=== PATIENT | female | born 1940 | race Caucasian/White ===

== ENCOUNTER 2017-10-20 10:51 | Outpatient (CLI) | payer MEDICARE ==
--- NOTE | 2017-10-20 14:36 | PET ---
PET CT: HISTORY: 77-year-old female with colorectal cancer. Exam requested for restaging. Patient had a colostomy in O miober-July of 2016 and last chemotherapy in February 2017. TECHNIQUE: PET scanning with CT attenuation correction was performed from the base of the brain through the prox imal thighs following the intravenous administration of 10.3 mCi F18-FDG in the right wrist. Imaging was performed after an uptake interval of 53 minutes. COMPARISON: PET CT dated 09/09/16. CORRELATION: CT chest, abdomen, and pelvis dated 10/01/17. FINDINGS: There has been interval development of multiple new liver lesions with a maximum SUV of 7.5 in the le jeanna located in the posterior aspect of the dome of the right lobe of the liver. The SUV in the infer ior tip of the right lobe of the liver (posterior) measures 7.1. No kiki hypermetabolism is seen in the neck, chest, axilla, abdomen, pelvis, or inguinal regions. No hypermetabolic pulmonary nodules, adrenal, or skeletal lesions are seen. There is physiologic activity in the GI and tracts. The CT scan used for attenuation correction demonstrates no evidence of pleural effusions or ascites. A left lower quadrant colostomy is present. IMPRESSION: Multiple hepatic metastases, new since 09/09/16. POS: [facility]
== END 2017-10-20 10:52 | disposition home or self-care (01) ==
LOC: PET 10:51
PROVIDERS: ATTEND Internal Medicine Medical Oncology
DX: C19 Malignant neoplasm of rectosigmoid junction (principal); C22.7 Other specified carcinomas of liver; Z88.2 Allergy status to sulfonamides
CPT/HCPCS: 78815; A9552

== ENCOUNTER 2018-08-02 09:50 | Outpatient (CLI) | payer MEDICARE ==
[~2018-08-02 09:50] MED LIST: Iopamidol 370 76% 100 ML VIAL ONE
--- NOTE | 2018-08-02 13:22 | CT ---
CT ABDOMEN WITH CONTRAST CT PELVIS WITH CONTRAST: HISTORY: Malignant neoplasm of the sigmoid colon. Partial resection of the liver. The stomach has been remov ed. Previous gallbladder surgery and appendectomy. COMPARISON: 05/20/2018, 12/24/2017. FINDINGS: ABDOMEN CT: There are dependent atelectatic changes I the lung bases. There is a 1.1 x 1.1 cm nodule in the left upper lobe. There is a 0.6 x 0.5 nodule in the right middle lobe. Both nodules were identified on the previous CT. Heart size is normal. No significant pericardial fluid. The visualized aorta has a normal caliber. There is nonspecific hypoattenuation in the anterior and right aspect of the peria ortic region. Findings may represent early developing lymph node. Visualized portal vein is patent. There is partial resection of the liver. There is heterogeneous e nhancement involving the hepatic parenchyma, less so than on the previous examination. Currently, th e largest area measures 2.4 cm craniocaudal x 4.1 cm mediolateral x 1.8 cm anterior posterior. There is a stable cystic focus adjacent to the hepatic dome. The spleen measures 15.6 cm. Pancreas and a drenal glands are unremarkable. No gastrohepatic, retrocrural, or periportal lymphadenopathy. Stable enhancement of the kidneys. Stable hypodensities compatible with renal cysts. Stable nonobst ructing calculus in the left intrarenal collecting system. Bilaterally, no obstructive uropathy. No te, evaluation of both distal ureters is limited. Left lower quadrant ostomy is redemonstrated. No mesenteric mass, lymphadenopathy, free air, or free fluid. There is dehiscence of the ventral abdominal wall. No evidence of bowel obstruction. The ileocecal j unction is normal. There appears to be residual contrast in a decompressed colon. Miller's pouch i s identified and is unremarkable. No lytic or blastic lesions in the osseous structures. IMPRESSION: 1. Stable lung parenchymal nodules. 2. Redemonstration of heterogeneous enhancement involving the hepatic dome. The overall size has de creased suggesting partial response to therapy. 3. Nonspecific periaortic hypoattenuation (axial image #41, series 2). Findings may represent devel oping lymph nodes. POS: [facility]
== END 2018-08-02 09:51 | disposition home or self-care (01) ==
LOC: SCSCT 09:50
PROVIDERS: ATTEND Internal Medicine Hematology & Oncology
DX: C18.7 Malignant neoplasm of sigmoid colon (principal); R91.8 Other nonspecific abnormal finding of lung field
CPT/HCPCS: 74177

== ENCOUNTER 2018-10-01 08:25 | Outpatient (CLI) | payer MEDICARE ==
[2018-10-01] MEDS ORDERED: Iopamidol 370 76% 100 ML VIAL ONE (10:06)
--- NOTE | 2018-10-01 11:42 | CT ---
CT ABDOMEN WITH CONTRAST CT PELVIS WITH CONTRAST: DATE: 10/01/18 HISTORY: 77-year-old female with malignant neoplasm of sigmoid colon with liver metastasis. COMPARISON: 08/02/18. TECHNIQUE: IV injection of iodinated contrast media: 100 mL [id number]. Oral contrast media: Administered. FINDINGS: The previously mentioned 0.5 x 0.6 cm noncalcified pulmonary nodule in the right middle lobe is uncha nged. The 1.1 x 1.7 cm pulmonary nodule in the left upper lobe mentioned on the previous CT report is not imaged on the current CT. (The previous CT images began more superiorly in the chest.) No pleura l effusion. Surgical absence of the right lobe of the liver. Well circumscribed 3 x 3.5 x 4 cm cystic lesion betw een the dome of the liver and the right hemidiaphragm is unchanged. Patchy, irregularly shaped low attenuation lesions in the right side of the remaining liver parenchym a (which is actually hepatic segment 4A of the left lobe of the liver rather than right lobe, shifted to the right because of the right hepatic lobectomy). This is multifocal, and therefore, precise doug surements are difficult to obtain. The irregularly shaped hypodense lesion component located superior ly previously measured as 4.0 x 1.8 x 2.3 cm, has shrunk to 3 x 2 x 2 cm. Tiny scattered additional h ypodense foci inferior to this have also decreased in size. No portal vein thrombosis. Chronic superi or herniation of the right kidney due to absence of the right hepatic lobe. Right renal upper pole be nign cyst. No hydronephrosis bilaterally. The previously demonstrated calculus in a left renal mid po le infundibulum has migrated a few centimeters medially, and is now located in the left renal pelvis. Currently, there is no hydronephrosis, but this calculus does have the potential to cause obstructio n in the future. Stable splenomegaly. Colostomy in the left lower quadrant abdominal wall. There are varices that enter into the colostomy sac in the superficial fat anterior to the abdominal wall. A 7. 5 cm diastasis between the left and right rectus abdominus muscles. Anterior protrusion of ventral pe ritoneal wall through this diastasis. This protrusion contains a portion of the mid transverse colon. There is fat stranding within the sac that may be edema and/or scar tissue, perhaps slightly worse t saldana on the previous CT. No small bowel dilation. Rosa's pouch at the pelvic cavity. Bilateral hip replacement metallic prostheses cause severe str eak artifact, obscuring significant portions of the pelvic cavity. No ascites or pneumoperitoneum jacob ntified. No adrenal mass. No pancreatic mass or pancreatitis. Atherosclerotic calcification without a neurysm of abdominal aorta. There is a right paraaortic retroperitoneal approximately 1.5 x 1.0 x 1.5 cm low attenuation small ma ss which may represent a mildly enlarged retroperitoneal lymph node (L2 level, axial image 35 of 95, series 2; coronal image 69 of 180, series 601). It has not significantly changed. On the contralatera l left side of the paraaortic retroperitoneum, there is a new, higher density, homogeneously enhancin g, solid mass measuring approximately 1 x 1 x 1 cm (axial image 35 of 95, series 2; coronal image 74 of 180, series 601). This is suspicious for a new pathologic retroperitoneal lymph node. IMPRESSION: 1. Status post right hepatic lobectomy. 2. The irregularly shaped low density lesions in the right-displaced left lobe of the liver have fur ther decreased in size, consistent with continued partial response to therapy. 3. The 9 mm left renal calculus has migrated a short distance into the left renal pelvis. This could potentially cause obstructive uropathy in the future. 4. New 1 cm left paraaortic enhancing nodule which may represent a new enlarged left retroperitoneal lymph node. 5. The low density right paraaortic retroperitoneal nodular density is unchanged. JNJean POS: [facility]
== END 2018-10-01 08:26 | disposition home or self-care (01) ==
LOC: CT 08:25
PROVIDERS: ATTEND Internal Medicine Hematology & Oncology
DX: C18.7 Malignant neoplasm of sigmoid colon (principal); K76.9 Liver disease, unspecified; N20.0 Calculus of kidney; K66.8 Other specified disorders of peritoneum; Z90.89 Acquired absence of other organs
CPT/HCPCS: 74177

== ENCOUNTER 2018-10-05 15:36 | Outpatient (CLI) | payer MEDICARE ==
[~2018-10-05 15:36] MED LIST changes: -Iopamidol 370 76% 100 ML VIAL ONE; +Sodium Chloride 0.9% 15 ML NEB ONE
== END 2018-10-05 15:37 | disposition home or self-care (01) ==
LOC: WCC 15:36
PROVIDERS: ATTEND Family Medicine
DX: K94.00 Colostomy complication, unspecified (principal)
CPT/HCPCS: 97139; G0463; 99211; A4218

== ENCOUNTER 2018-11-27 10:48 | Inpatient (IN) | payer MEDICARE ==
[2018-11-27] MEDS ORDERED: Norepinephrine 8 MG/0.9% NS 250 ML ONE (10:55)
[2018-11-27] MEDS ORDERED: Fentanyl 100 MCG/2 ML VIAL ONE ×2 (11:36)
[2018-11-27] MEDS ORDERED: Phenylephrine HCL 10 MG/ML VIAL ONE (11:36)
--- NOTE | 2018-11-27 12:18 | PDOC.FPRHP ---
- History of Present Illness Chief Complaint: Vomiting/abdominal pain History of Present Illness: 78 yo F with PMH metastatic colon cancer, DM2 was transferred from [facility] ED. Feeling well yesterday. Last night at 0100 she started to have nausea, vomiting , intense L sided abdominal/flank/back pain. In [facility] ED found to have obstructing renal calculus on CT. Patient denies prior kidney stone. Denies dysuria, hematuria, CP, SOB, fever. Has not been on any antibiotics recently. Lives at home alone. PCP: [facility] ED Course: 6 L IVF, levophed, vanc, ceftriaxone, toradol, flomax, zofran, ketoralac - Allergies/Adverse Reactions Allergies Allergy/AdvReac Type Severity Reaction Status Date / Time acetaminophen [From Tylenol] Allergy Intermediate Verified 12/12/17 18:53 Sulfa (Sulfonamide Allergy rash, Verified 12/18/16 17:00 Antibiotics) temperature - Home Medications Medication Instructions Recorded Confirmed Type Simethicone 160 mg PO TID PRN 12/12/17 12/12/17 History Acetaminophen [Tylenol Extra 500 mg PO Q4HR PRN tab 01/21/18 Rx Strength] Artificial Tear Niki 15ml Bot 2 drop EA EYE BID bot 01/21/18 Rx [Tears Renewed] Aspirin [Ecotrin Low Strength] 81 mg PO DAILY tab 01/21/18 Rx Calcium Carbonate [Tums] 500 mg PO Q6HR PRN tab 01/21/18 Rx Fluticasone Propionate [Flonase 0 gm NASAL DAILY #0 bot 01/21/18 Rx Nasal [place]] Ibuprofen [Motrin IB] 400 mg PO Q6HR PRN tab 01/21/18 Rx Loperamide HCl [Imodium] 2 mg PO PRN PRN cap 01/21/18 Rx Losartan [Cozaar] 100 mg PO DAILY #30 tab 01/21/18 Rx Magnesium Hydroxide [Milk Of 30 ml PO DAILYPRN PRN udcup 01/21/18 Rx Magnesium] Pantoprazole [Protonix] 40 mg PO DAILY #30 tab 01/21/18 Rx Sertraline HCl [Zoloft] 100 mg PO QAM #30 tab 01/21/18 Rx metFORMIN [Glucophage] 500 mg PO BID #60 tab 01/21/18 Rx - History PMHx: metastatic colon cancer s/p colostomy, liver resection. DM2, seasonal allergies PSHx: Bilateral hip replacements, colonic resection w/ colostomy 2017, liver resection, back surgery, tonsillectomy, hysterectomy, appendectomy, cholecystectomy FHx: Unknown, adopted Social: Lives at home alone with dog. Prior tobacco use of 30 pack years, quit 25 yrs ago. Drinks 2 glasses wine/week. No drug use. - Review of Systems General: denies: fever/chills Respiratory: denies: cough, shortness of breath Cardiovascular: denies: chest pain, palpitation Gastrointestinal: reports: nausea, vomiting, diarrhea, abdominal pain Genitourinary: denies: dysuria, polyuria, other (hematuria) Skin: denies: rashes, lesions Musculoskeletal: reports: pain, tenderness Neurological: denies: numbness, syncope - Vital signs BP: 128/66 HR: 98 RR: 20 Tmax: 98.4 Pox: 95% on RA Wt: 82 kg - Physical Exam Constitutional: NAD Heart: RRR, normal S1/S2, pulses present, no edema Lungs: CTAB, no respiratory distress, no wheezing Abdomen: soft, bowel sounds present, other (colostomy in place, left abdomen/ flank mildly TTP) Musculoskeletal: normal structure, normal tone Neurological: no focal deficit Skin: no rash/lesions, good turgor Heme/Lymphatic: no unusual bruising or bleeding Psychiatric: normal mood and affect FMR H&P: Results - Labs Result Diagrams: 11/27/18 12:10 11/27/18 12:10 FMR H&P: A/P - Problem List (1) Sepsis Current Visit: Yes Status: Acute Code(s): A41.9 - SEPSIS, UNSPECIFIED ORGANISM (2) Nephrolithiasis Current Visit: Yes Status: Acute (3) Lactic acid acidosis Current Visit: Yes Status: Acute Code(s): E87.2 - ACIDOSIS (4) Colostomy on examination Current Visit: Yes Status: Chronic Code(s): Z93.3 - COLOSTOMY STATUS (5) Hepatic metastases Current Visit: No Status: Chronic Code(s): C78.7 - SECONDARY MALIG NEOPLASM OF LIVER AND INTRAHEPATIC BILE DUCT (6) DM (diabetes mellitus), type 2, uncontrolled Current Visit: No Status: Chronic Code(s): E11.65 - TYPE 2 DIABETES MELLITUS WITH HYPERGLYCEMIA Qualifiers: Qualified Code(s): E11.65 - Type 2 diabetes mellitus with hyperglycemia (7) Hypertension Current Visit: No Status: Chronic Code(s): I10 - ESSENTIAL (PRIMARY) HYPERTENSION (8) Colon cancer metastasized to liver Current Visit: No Status: Acute Code(s): C18.9 - MALIGNANT NEOPLASM OF COLON , UNSPECIFIED; C78.7 - SECONDARY MALIG NEOPLASM OF LIVER AND INTRAHEPATIC BILE DUCT (9) Hypokalemia Current Visit: No Status: Acute Code(s): E87.6 - HYPOKALEMIA (10) UTI (urinary tract infection) Current Visit: Yes Status: Acute - Plan Sepsis 2/2 complicated UTI with obstructing nephrolithiasis - Repeat labs in our ED showed WBC 12.1, lactic 5.0, hypotension - CT showed acute L obstructive uropathy with 8mm proximal L ureteral calculus - s/p 6L IVF and started on pressors in ED - UA with large blood, moderate leuk esterase, 3+ bacteria - Continue vanc and rocephin (11/27) - pending blood and urine cultures collected at [facility] - Appreciate Urology recommendations, plan for surgery today Hypotension 2/2 above - started on levophed in ED with MAP of 76 at time of exam Lactic acidosis - 4.9->5.0 - continue to trend Hypokalemia - K+ 3.3, will replace and recheck in am Hypocalcemia - 7.7, continue to monitor Chronic normocytic anemia - Hgb 9.8, at baseline - likely 2/2 chronic disease Metastatic colon cancer - s/p colon resection with colostomy, liver resection - Dr. Harris is oncologist. Recently completed another round of chemo with repeat PET scheduled. DM2 - BG 200s - accuchecks and SSI - will continue home metformin when able PCP: [facility] Diet: NPO Ppx: Lovenox Dispo: admit to CCU Case discussed with Dr. Rapp. FMR H&P: Upper Level - Pertinent history 78F presenting to outside facility for abdominal pain. She endorses N/V and increasing left sided abdominal pain since around midnight. CT reveals 8-9mm obstructing stone in UPJ. She has no history of nephrolithiasis. She denies having any pain with urination and does not report any blood in urine. She also denies any fevers or chills at home. ED: Vancomycin 1G, rocephin 2G, NS 5L, toradol 30 mg, Flomax .4mg - Pertinent findings 128/66 mmHg 98 bpm 20 RR 98.4F 95% on RA Gen: mild distress CV: RRR; no murmurs Pulm: CTA-B Abd: LUQ and CVA tenderness on left side Ext: no cyanosis or edema WBC: 12.1 H/H: 07/14 AB.24/40/100 LA: 5.0 - Plan Date/Time: 11/27/18 1218 I, Guillermo Whalen, have evaluated this patient and agree with findings/plan as outlined by food and beverage intern resident. Pertinent changes/additions are listed here. Septic Shock 2/2 obstructive uropathy: -s/p 6 liters of fluid and still unable to maintain appropriate MAPs -she is urgently undergoing Urology evaluation with decompression -admit to CCU and maintain MAPs above 65 mmHg -continue broad spectrum abx -blood and urine cultures pending Addendum - Attending - Attending Attestation Date/Time: 11/27/18 1200 I personally evaluated the patient and discussed the management with Dr. Corona /Koby. I agree with the History, Examination, Assessment and Plan documented above with any addition or exceptions noted below. Patient here with 1 day history of increased abdominal pain, nausea, and weakness. At outside ER was found to be septic and having dirty UA with CT evidence of obstructing stone. Upon transfer here, became hypotensive requiring pressor support despite adequate fluid resuscitation. Labs rechecked and Urology consulted. Patient will be admitted for Septic shock 2/2 complicated UTI in setting of obstructive uropathy. She is going to the OR for stent placement. Continue Rocephin and Vancomycin. Await cultures. Continue pressors as needed to maintain MAP >65. Anticipate prolonged hospitalization.
[2018-11-27 12:20] LABS: Hemoglobin 9.8 g/dL (12.0-16.0); Mean Corpuscular HGB CONC 31.8 g/dL (32.0-36.0); Mean Corpuscular Hemoglobin 30.5 pg (27.0-31.0); Mean Corpuscular Volume 95.9 fL (78.0-98.0); RBC Distribution Width 15.2 % (11.5-14.5); Red Blood Cell (RBC) Count 3.22 mill/uL (4.20-5.40); White Blood Cell (WBC) Count 12.1 thou/uL (4.8-10.8)
[2018-11-27] MEDS ORDERED: Iothalamate Meglumine 60% 50 ML VIAL FS ONE (12:22)
[2018-11-27 12:38] LABS: Band 11 % (5-11); Hypochromia SLIGHT = 6-15 cells (100X) (0-5/hpf); Lymphocytes 6 % (21-51); MDiff Complete? YES; Mean Platelet Volume 8.6 fL (7.4-10.4); Monocytes 5 % (0-10); Neutrophil 78 % (42-75); Platelet Count 93 thou/uL (130-400); Platelet Morphology Comment Appears Decreased
[2018-11-27 12:46] LABS: ALT (SGPT) 24 U/L (8-55); AST (SGOT) 41 U/L (5-34); Albumin 3.1 g/dL (3.4-4.8); Alkaline Phosphatase 146 U/L (40-150); Anion Gap 16 mmol/L (10-20); BUN (Urea Nitrogen) 10 mg/dL (9.8-20.1); Bilirubin, Total 0.5 mg/dL (0.2-1.2); Calc. Creatinine Clearance 0 mL/min (70-130); Calcium 7.7 mg/dL (7.8-10.44); Carbon Dioxide 16 mmol/L (23-31); Chloride 111 mmol/L (98-107); Estimated GFR-MDRD 55; Globulin 2.4 g/dL (2.4-3.5); Glucose 196 mg/dL (83-110); Potassium 3.3 mmol/L (3.5-5.1); Protein, Total 5.5 g/dL (6.0-8.3); Sodium 140 mmol/L (136-145)
--- NOTE | 2018-11-27 13:33 | RAD ---
RETROGRADE PYELOGRAM: Date: 11/27/18 34 fluoroscopic images from a retrograde study are presented. INDICATION: Left ureteral stent with cystoscopy. FINDINGS/IMPRESSION: Images show catheter placement in the left ureter and opacification of left collecting structures. Th ere is a double pigtail left ureteral stent on the final image noted. POS: [facility]
--- NOTE | 2018-11-27 13:37 | OP ---
DATE OF PROCEDURE: 11/27/2018 PREOPERATIVE DIAGNOSES: Septic shock, urinary tract infection, left proximal ureteral stone. POSTOPERATIVE DIAGNOSES: Septic shock, urinary tract infection, left proximal ureteral stone. PROCEDURE PERFORMED: Cysto, left retrograde, left stent. ANESTHETIC: General. ESTIMATED BLOOD LOSS: 50 mL. FINDINGS: There was about a 1 cm proximal left mid ureteral stone, which were able to get by with a straight Glidewire. We were able to pass a 22 cm 6-Chilean double-J stent. The string was not left attached. A 16-Chilean Duran catheter was also placed. There was no evidence of bladder tumor, foreign body, or stone. She had very foul-smelling urine from the bladder and very foul smelling urine obtained after a Pollack catheter was passed by the obstructing stone. This was sent for culture. DESCRIPTION OF PROCEDURE: After obtaining written and verbal consent from the patient, she was taken from the ICU to the operating room. She had an art line placed. She was given a general anesthetic oral intubation. Orogastric tube was placed. She had PlexiPulses placed on her lower extremities. She was placed in dorsal lithotomy position. She was sterilely prepped and draped. Fluoroscopy unit was set up for KUB, which was taken. We could see the stone on this. She underwent cystoscopy with a 22-Chilean sheath. This was well lubricated and passed under direct vision through the female urethra into the bladder. The bladder was filled and emptied number of times and very foul smelling urine. A guidewire was passed up to the point of the stone, where it would not go by it. A Pollack catheter was advanced over this level. The guidewire was removed. We gently injected about 3 to 5 mL of contrast. Most of it came down the ureter, but a little bit came up and it pushed the stone slightly upward. We could not get a guidewire by this, but we were able to get a straight Glidewire by this. We were then able to get a Pollack over the Glidewire and up into the area of the renal pelvis, and we drained out about 15 mL of very thick slightly bloody and foul-smelling urine. We injected about 5 mL of contrast just to fill out this part of the collecting system and then replaced with 0.038 guidewire, removing the Pollack catheter and then putting the 6 x 22-Chilean up. We got this to coil in the upper calyceal system of a bifid system. We could not get it to coil into the renal pelvis. I think just because she just has not a very big renal pelvis, so it was draining and effluxing well. At this point, the bladder was drained and the instruments were removed. The Duran catheter was sterilely placed and hooked up to a drainage bag after 10 mL of sterile water placed in the balloon. She was taken out of dorsal lithotomy position and taken, still intubated up to the intensive care unit. Job ID: [id number]
[2018-11-27] MEDS ORDERED: Norepinephrine 8 MG/250 ML BAG IVPB PRN (13:41)
[2018-11-27] MEDS ORDERED: Ondansetron ODT 4 MG TAB SL PRN (13:42)
[2018-11-27] MEDS ORDERED: Acetaminophen 325 MG TAB PO PRN (13:42)
[2018-11-27] MEDS ORDERED: Sodium Chloride 0.9% 1,000 ML IV SCH (13:42)
[2018-11-27] MEDS ORDERED: Ondansetron PF 4 MG/2 ML Vial IVP PRN ×2 (13:42→14:11)
--- NOTE | 2018-11-27 13:42 | CON ---
DATE OF CONSULTATION: HISTORY OF PRESENT ILLNESS: This is a 78-year-old white female who was transferred from [facility] to this ER today. She has a proximal left ureteral stone and left hydronephrosis, straining around the left kidney, she had a pressure of 60. She has been given I think 4 L of saline and is also on Levophed and her blood pressure stopped in the 120s. Her urinalysis had showed 3+ bacteria, 21-50 red cells, 11-20 white cells, she also had 1+ yeast. White blood cell count was normal at 8.7. Her hemoglobin was 10.9, platelet count was 93. Creatinine was 0.9. Sugar was somewhat elevated at 220. Other liver function tests were normal. Complicating this matters is she has colon cancer and is treated by Dr. Harris for this. She had chemotherapy I think a week ago. On talking with her, she said she had some abdominal pain last night and turned into left-sided and left flank pain, nausea and vomiting before she went to the ER. No dysuria. No hematuria. No prior history of stones to her knowledge, no recent antibiotic use and no history of recurrent or resistant urinary tract infections. MEDICAL HISTORY: Diabetes, hypertension, hyperlipidemia. She had stage III colon cancer. SURGICAL HISTORY: Includes bilateral hip replacement. This has not been recent. She has had a colostomy and colectomy for colon cancer in 2017. She has had a liver resection. I think that was done in [place] at [facility]. She has had back surgery. She also has had a history of diverticulitis with diverticular abscess. She has had that drained. Dr. Loco has been her surgeon. Dr. Harris has been her oncologist. SOCIAL HISTORY: She does not smoke. She does not drink except for occasional wine. PHYSICAL EXAMINATION: Her left flank is tender. Left upper quadrant is tender, it is rebound, it is not guarding. She has left lower quadrant colostomy. IMPRESSION: Septic shock with obstructing proximal left ureteral stone. PLAN: Plan is for emergent cysto, left retrograde, and left stent. On reviewing her records, she has received vancomycin and has received Rocephin. I talked with the patient about the need for this emergent procedure and for reasons why I have also talked with Anesthesia and with Critical Care Medicine and with the primary care team that will be admitting her. She will plan on being taken to the OR from the ER and then from the OR to the ICU and then will keep her intubated throughout this. Job ID: [id number]
[2018-11-27] MEDS ORDERED: Propofol 1,000 MG/100 ML VIAL IV ONE (13:47)
[2018-11-27] MEDS ORDERED: Lidocaine 1% PF 5 ML VIAL ONE (13:56)
[2018-11-27] MEDS ORDERED: Ondansetron PF 4 MG/2 ML Vial ONE (13:56)
[2018-11-27] MEDS ORDERED: Rocuronium Bromide 10 MG/ML (10ML VIAL) ONE (13:56)
[2018-11-27] MEDS ORDERED: Succinylcholine Chloride 20 MG/ML 10 ml SYRINGE FS ONE (13:56)
[2018-11-27] MEDS ORDERED: PROPOFOL 200 MG/20 ML VIAL ONE (13:56)
[2018-11-27] MEDS ORDERED: Lactated Ringer's 1,000 ML IV SCH (14:11)
[2018-11-27] MEDS ORDERED: Ondansetron ODT 4 MG TAB PO PRN (14:11)
[2018-11-27] MEDS ORDERED: Dextrose 50% Abboject 50 ML SYRINGE SLOW IVP PRN (14:11)
[2018-11-27] MEDS ORDERED: Dextrose 5% in Water 1,000 ML IV PRN (14:11)
[2018-11-27 14:36] LABS: Analyzer IN Cardio ER; Base Excess (BEa) -9.7 mEq/L (-2.0 to +3.0); CO2 Tension 40.3 mmHg (35.0-45.0); Calcium, Ionized 1.02 mmol/L (1.12-1.30); Carboxyhemoglobin (COHb) 0.3 gm% (0.0-3.0); O2 Tension (PaO2) 102.7 mmHg (> 70.0); Potassium - ABG Lab 3.27 mmol/L (3.70-5.30)
[2018-11-27 14:43] LABS: ALV-art Gradient 132.125 (0-20); Puncture Site ALINE; pH, Arterial 7.24 (7.35-7.45)
[2018-11-27] MEDS ORDERED: Potassium Chloride 20 MEQ/100 ML PREMIX BAG IVPB SCH (15:00)
[2018-11-27] MEDS: HumaLOG 300 UNITS/3 ML VIAL SC PRN (15:12)
[2018-11-27] MEDS: Sodium Chloride 0.9% 1,000 ML IV SCH ×2 (17:00→20:28)
[2018-11-27] MEDS ORDERED: Sodium Chloride 0.9% 500 ML IVPB SCH (17:15)
[2018-11-27] MEDS ORDERED: Propofol BOLUS 1,000 MG/100 ML VIAL IV PRN (17:30)
[2018-11-27] MEDS ORDERED: Propofol 1,000 MG/100 ML VIAL IV PRN (17:30)
--- NOTE | 2018-11-27 21:45 | CON ---
DATE OF CONSULTATION: 11/27/2018 HISTORY OF PRESENT ILLNESS: Ms. Silver is a very pleasant 78-year-old female. She has had colon cancer that has been resected. She has an ostomy. She has also had liver mets resected. She is currently being followed by Dr. Harris. She has recently received chemotherapy. She also has diabetes. She presented with left-sided abdominal pain, nausea, vomiting, and hypotension. She was found to have an obstructing calculus and was sent here from [place]. She was given several liters of IV fluid and was placed on pressors, and when I saw her was getting ready to go for ureteral stenting. ALLERGIES: SHE REPORTS ALLERGIES TO [facility]. PAST MEDICAL HISTORY: Remarkable for bilateral hip replacements, back surgery, tonsillectomy, hysterectomy, appendectomy, and cholecystectomy. FAMILY HISTORY: She is adopted. SOCIAL HISTORY: She is a nonsmoker. Occasional drinker. She smoked for almost 30 years ago and quit. REVIEW OF SYSTEMS: A 10-point review of systems is otherwise negative. She did say that she did not want to be intubated, but I explained to her that it is the best way to get her through this illness. She said she did not want to on the ventilator and I have explained to her that we should be able to extubate her in the morning after her procedure, but I would leave her intubated after relief of her obstruction because of her hemodynamic instability and what we find will likely be metabolic acidosis. Bicarb was 16 on her emergency department lab. PHYSICAL EXAMINATION: VITAL SIGNS: Blood pressure is 100 systolic, respiratory rate is in the high 20s. HEENT: Pupils are equal. Sclerae are anicteric. NECK: Supple. LUNGS: Clear anteriorly. HEART: Regular rhythm. ABDOMEN: She had a right upper quadrant open cholecystectomy type scar and then a midline abdominal scar as well as a left-sided ostomy. Her abdomen was nontender. EXTREMITIES: Without clubbing, cyanosis, or edema. LABORATORY DATA: Sodium 140, potassium 3.3, chloride 111, bicarb 16, BUN 10, creatinine 0.9. White count was 8.7, hemoglobin 10.9, platelets 93,000. She went down for a stent which was placed easily and successfully by Dr. De Leon. Blood gas postprocedure; pH 7.24, CO2 40, PO2 of 102. IMPRESSION: 1. Metabolic acidosis secondary to clinical sepsis. 2. Obstructing ureteral calculus with bacteremia most likely. 3. Metastatic colon cancer, currently being treated after resection of her colon cancer and partial liver resection. I will be happy to follow with the other physicians caring for. CRITICAL CARE TIME: 40 minutes. Job ID: [id number] MTDD
[2018-11-28] MEDS: Sodium Chloride 0.9% 1,000 ML IV SCH ×3 (01:43→10:44)
[2018-11-28 05:30] LABS: ALT (SGPT) 19 U/L (8-55); AST (SGOT) 24 U/L (5-34); Albumin 2.4 g/dL (3.4-4.8); Alkaline Phosphatase 105 U/L (40-150); Anion Gap 12 mmol/L (10-20); BUN (Urea Nitrogen) 15 mg/dL (9.8-20.1); Bilirubin, Total 0.5 mg/dL (0.2-1.2); Calc. Creatinine Clearance 83 mL/min (70-130); Carbon Dioxide 18 mmol/L (23-31); Chloride 115 mmol/L (98-107); Estimated GFR-MDRD 71; Glucose 108 mg/dL (83-110); Potassium 3.5 mmol/L (3.5-5.1); Protein, Total 4.4 g/dL (6.0-8.3); Sodium 141 mmol/L (136-145)
[2018-11-28 05:56] LABS: Hemoglobin 8.4 g/dL (12.0-16.0); Mean Corpuscular Hemoglobin 30.3 pg (27.0-31.0); Mean Corpuscular Volume 94.5 fL (78.0-98.0); Mean Platelet Volume 9.1 fL (7.4-10.4); Platelet Count 59 thou/uL (130-400); RBC Distribution Width 15.1 % (11.5-14.5); Red Blood Cell (RBC) Count 2.76 mill/uL (4.20-5.40); White Blood Cell (WBC) Count 7.1 thou/uL (4.8-10.8)
[2018-11-28 05:57] LABS: Band 32 % (5-11); Lymphocytes 12 % (21-51); MDiff Complete? YES; Metamyelocyte 3 % (0-0); Monocytes 8 % (0-10); Neutrophil 45 % (42-75); Platelet Morphology Comment Appears Decreased; Toxic Granulation SLIGHT
--- NOTE | 2018-11-28 05:59 | PDOC.FM ---
- Subjective Subjective: Ms. Silver was sitting upright in bed, alert, flipping through channels on TV, still intubated. Follows commands. - Objective MAR Reviewed: Yes Vital Signs & Weight: Vital Signs (12 hours) Temp Pulse Resp Pulse Ox 11/28/18 04:54 81 11/28/18 04:00 100 F H 24 H 11/28/18 01:56 24 H 11/28/18 00:55 74 11/28/18 00:00 100.9 F H 22 H 11/27/18 22:25 79 11/27/18 22:00 21 H 11/27/18 20:00 99.5 F 100 11/27/18 18:56 84 11/27/18 18:00 22 H Weight Admit Weight 88 kg Weight 86.4 kg Most Recent Monitor Data Heart Rate from ECG 79 NIBP 111/59 NIBP BP-Mean 76 Respiration from ECG 1 SpO2 99 I&O: 11/26/18 11/27/18 11/28/18 06:59 06:59 06:59 Intake Total 3621.8 Output Total 1105 Balance 2516.8 Result Diagrams: 11/28/18 04:53 11/28/18 04:53 Phys Exam - Physical Examination Constitutional: NAD Respiratory: clear to auscultation bilateral (ventilator sounds) Cardiovascular: RRR, no significant murmur Gastrointestinal: soft, non-tender, no distention Neurological: non-focal Deviation from normal: alert Skin: normal turgor Dx/Plan (1) Sepsis Code(s): A41.9 - SEPSIS, UNSPECIFIED ORGANISM Status: Acute (2) Nephrolithiasis Status: Acute (3) Lactic acid acidosis Code(s): E87.2 - ACIDOSIS Status: Acute (4) 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: Chronic (5) Hepatic metastases Code(s): C78.7 - SECONDARY MALIG NEOPLASM OF LIVER AND INTRAHEPATIC BILE DUCT Status: Chronic (6) DM (diabetes mellitus), type 2, uncontrolled Code(s): E11.65 - TYPE 2 DIABETES MELLITUS WITH HYPERGLYCEMIA Status: Chronic (7) Hypertension Code(s): I10 - ESSENTIAL (PRIMARY) HYPERTENSION Status: Chronic (8) Colon cancer metastasized to liver Code(s): C18.9 - MALIGNANT NEOPLASM OF COLON, UNSPECIFIED; C78.7 - SECONDARY MALIG NEOPLASM OF LIVER AND INTRAHEPATIC BILE DUCT Status: Acute (9) Hypokalemia Code(s): E87.6 - HYPOKALEMIA Status: Acute (10) UTI (urinary tract infection) Status: Acute - Plan Plan: Septic shock 2/2 complicated UTI with obstructing nephrolithiasis - Initial labs in our ED showed WBC 12.1, lactic 5.0, hypotension - CT showed acute L obstructive uropathy with 8mm proximal L ureteral calculus - s/p 6L IVF and started on pressors in ED - UA with large blood, moderate leuk esterase, 3+ bacteria - Continue vanc and rocephin (11/27) - IVF @ 200 - Urine culture - e coli, sensitivities pending. Bcx neg to date. - Appreciate Urology recommendations - Appreciate Pulm recommendations, plan for extubation today Hypotension 2/2 above, resolved - started on levophed in ED and came off after surgery Lactic acidosis - 4.9->5.0 - will repeat today to prove downtrend Metabolic acidosis - 2/2 above Hypokalemia, improved - K+ 3.5 Hypocalcemia - 7.0, continue to monitor Chronic normocytic anemia - Hgb at baseline - likely 2/2 chronic disease Metastatic colon cancer - s/p colon resection with colostomy, liver resection - Dr. Harris is oncologist. Recently completed another round of chemo with repeat PET scheduled. DM2 - accuchecks and SSI - will continue home metformin when able PCP: Luz Diet: NPO Ppx: Lovenox Dispo: plan for extubation today Addendum - Attending - Attending Attestation Date/Time: 11/28/18 [id number] I personally evaluated the patient and discussed the management with Dr. Corona. I agree with the History, Examination, Assessment and Plan documented above with any addition or exceptions noted below. Patient significantly improved this morning after ureteral stent placement and drainage of the purulent urine behind her stone. Mild fever overnight but WBC downtrending and she did not require any pressors after the drainage. BP improved. Making adequate UOP. Continue broad spectrum abx and await cultures. Trend lactate though suspect she will improve well. Expect extubation by Pulm today.
[2018-11-28 07:05] LABS: Actual Bicarbonate (HCO3a) 18.9 mEq/L (22-28); Analyzer IN Cardio ER; Base Excess (BEa) -3.5 mEq/L (-2.0 to +3.0); CO2 Tension 25.8 mmHg (35.0-45.0); Carboxyhemoglobin (COHb) 0.3 gm% (0.0-3.0); Hemoglobin (Hb) 10.4 g/dL (12.0-16.0); O2 Tension (PaO2) 112.3 mmHg (> 70.0); Potassium - ABG Lab 3.35 mmol/L (3.70-5.30); Puncture Site ALINE; pH, Arterial 7.48 (7.35-7.45)
[2018-11-28] MEDS ORDERED: Vancomycin HCl 1.5 GM in Sodium Chloride 0.9% 250 ML 300 ML IVPB SCH (08:00)
[2018-11-28] MEDS: Enoxaparin Sodium 40 MG/0.4 ML SYRINGE SC SCH (09:49)
[2018-11-28] MEDS: cefTRIAXone\\ROCEPHIN 1 GM in Sodium Chloride 0.9% 100 ML IVPB SCH (09:49)
[2018-11-28] MEDS ORDERED: Acetaminophen/Codeine 30-300mg Tablet PO PRN (10:26)
--- NOTE | 2018-11-28 15:07 | PRG ---
DATE OF SERVICE: 11/28/2018 SUBJECTIVE: Clarence Silver was awake and alert, in no distress this morning. She was tolerating CPAP trial. OBJECTIVE: VITAL SIGNS: Blood pressure 120/57, heart rate is 85, and respiratory rate is 23. LUNGS: Clear. HEART: Regular rhythm, S1 and S2 are normal. ABDOMEN: Soft and nontender. EXTREMITIES: No clubbing, cyanosis, or edema. LABORATORY DATA: White count is 7.1, hemoglobin 8.4, and platelets 59,000. A pH 7.48, CO2 of 25, and pO2 of 112 this morning. Sodium 141, potassium 3.5, chloride 115, bicarb 18, BUN 15, and creatinine 0.79. IMPRESSION AND PLAN: Status post mechanical ventilation for metabolic acidosis associated with Escherichia coli clinical sepsis brought on by an obstructing ureteral calculus, status post stent placement. I felt she was a candidate for extubation and this has been done successfully. She has done well postextubation. CRITICAL CARE TIME: 30 minutes. Job ID: [id number]
[2018-11-29] MEDS: Sodium Chloride 0.9% 1,000 ML IV SCH ×2 (03:51→14:53)
[2018-11-29 05:37] LABS: #Eosinphils 0.2 thou/uL (0.0-0.7); #Monocytes 0.6 thou/uL (0.11-0.59); #Neutrophils 8.2 thou/uL (1.40-6.50); %Basophils 0.3 % (0.0-1.0); %Eosinophils 1.9 % (0.0-10.0); %Lymphocytes 10.1 % (21.0-51.0); %Neutrophils 81.8 % (42.0-75.0); Hemoglobin 8.8 g/dL (12.0-16.0); Mean Corpuscular HGB CONC 32.1 g/dL (32.0-36.0); Mean Corpuscular Hemoglobin 30.6 pg (27.0-31.0); Mean Corpuscular Volume 95.4 fL (78.0-98.0); Mean Platelet Volume 9.5 fL (7.4-10.4); Platelet Count 72 thou/uL (130-400); Red Blood Cell (RBC) Count 2.86 mill/uL (4.20-5.40)
[2018-11-29 05:40] LABS: ALT (SGPT) 14 U/L (8-55); AST (SGOT) 17 U/L (5-34); Albumin 2.5 g/dL (3.4-4.8); Alkaline Phosphatase 118 U/L (40-150); Anion Gap 10 mmol/L (10-20); BUN (Urea Nitrogen) 11 mg/dL (9.8-20.1); Bilirubin, Total 0.4 mg/dL (0.2-1.2); Calc. Creatinine Clearance 96 mL/min (70-130); Calcium 7.2 mg/dL (7.8-10.44); Carbon Dioxide 21 mmol/L (23-31); Chloride 113 mmol/L (98-107); Estimated GFR-MDRD 84; Globulin 2.2 g/dL (2.4-3.5); Glucose 101 mg/dL (83-110); Protein, Total 4.7 g/dL (6.0-8.3); Sodium 141 mmol/L (136-145)
--- NOTE | 2018-11-29 05:54 | PDOC.FM ---
- Subjective Subjective: 78 yo female seen at bedside this AM. Patient states she feels much improved. She denies any pain, SOB, n/v/d. She states that she is willing to go to a short term rehab stay for treatment. No other complaints today. - Objective Vital Signs & Weight: Vital Signs (12 hours) Temp Pulse Ox 11/29/18 04:00 99.1 F 11/29/18 00:00 99.0 F 11/28/18 20:00 99 11/28/18 19:00 99.3 F Weight Admit Weight 88 kg Weight 86.4 kg Most Recent Monitor Data Heart Rate from ECG 85 NIBP 130/64 NIBP BP-Mean 86 Respiration from ECG 17 SpO2 98 I&O: 11/27/18 11/28/18 11/29/18 06:59 06:59 06:59 Intake Total 3621.8 2325 Output Total 1150 3265 Balance 2471.8 -940 Result Diagrams: 11/29/18 04:09 11/29/18 04:09 Phys Exam - Physical Examination Constitutional: NAD HEENT: moist MMs Respiratory: no wheezing, clear to auscultation bilateral Cardiovascular: RRR, no significant murmur Gastrointestinal: soft, no distention, positive bowel sounds Ostomy in place and mild tenderness Musculoskeletal: no edema, pulses present Neurological: non-focal, normal sensation, moves all 4 limbs Psychiatric: A&O x 3 Skin: no rash Dx/Plan (1) Sepsis Code(s): A41.9 - SEPSIS, UNSPECIFIED ORGANISM Status: Resolved (2) Urinary tract obstruction by kidney stone Code(s): N20.0 - CALCULUS OF KIDNEY; N13.8 - OTHER OBSTRUCTIVE AND REFLUX UROPATHY Status: Acute (3) Diabetes mellitus Code(s): E11.9 - TYPE 2 DIABETES MELLITUS WITHOUT COMPLICATIONS Status: Acute (4) Colon cancer metastasized to liver Code(s): C18.9 - MALIGNANT NEOPLASM OF COLON, UNSPECIFIED; C78.7 - SECONDARY MALIG NEOPLASM OF LIVER AND INTRAHEPATIC BILE DUCT Status: Acute (5) Hypokalemia Code(s): E87.6 - HYPOKALEMIA Status: Acute (6) Thrombocytopenia Code(s): D69.6 - THROMBOCYTOPENIA, UNSPECIFIED Status: Acute - Plan Plan: Septic shock 2/2 complicated UTI with obstructing nephrolithiasis, resolved - Initial labs in our ED showed WBC 12.1, lactic 5.0, hypotension - CT showed acute L obstructive uropathy with 8mm proximal L ureteral calculus - Continue vanc and rocephin (11/27) - Urine culture - e coli, universal sensitive - Appreciate Urology recommendations - Appreciate Pulm recommendations, patient extubated 11/28 Hypotension 2/2 above, resolved - started on levophed in ED and came off after surgery - BP WNL and likely will restart home BP meds when appropriate Lactic acidosis, resolved - 4.9->5.0 -> 1.0 Metabolic acidosis - resolved - 2/2 above Hypokalemia, improved - K+ 3.0 - Will replete Hypocalcemia - 7.2, continue to monitor Chronic normocytic anemia - Hgb at baseline - likely 2/2 chronic disease Metastatic colon cancer - s/p colon resection with colostomy, liver resection - Dr. Harris is oncologist. Recently completed another round of chemo with repeat PET scheduled. DM2 - accuchecks and SSI - will continue home metformin when able Thrombocytopenia - This AM 72 - Will monitor for signs of bleeding - Make appropriate transfusions as needed Disposition: Stable, Med Rec to be completed today and will likely be stable for transfer for floor today. Addendum - Attending - Attending Attestation Date/Time: 11/29/18 8304 I personally evaluated the patient and discussed the management with Dr. Diez. I agree with the History, Examination, Assessment and Plan documented above with any addition or exceptions noted below. Sepsis secondary to complicated Ecoli UTI and obstructing nephrolithiasias- s/p uretral stent per urology. Currently on IV Rocephin. Much improved. Hypokalemia- replace Metastatic colon ca- followed by Dr. Harris. CM to assist with short term placement.
[2018-11-29 06:40] VITALS: BMI 31.3
[2018-11-29] MEDS ORDERED: Potassium Chloride 20 MEQ TAB PO SCH (08:30)
[2018-11-29] MEDS: cefTRIAXone\\ROCEPHIN 1 GM in Sodium Chloride 0.9% 100 ML IVPB SCH (09:00)
[2018-11-29] MEDS: Enoxaparin Sodium 40 MG/0.4 ML SYRINGE SC SCH (09:00)
[2018-11-29] MEDS: HumaLOG 300 UNITS/3 ML VIAL SC PRN (11:30)
--- NOTE | 2018-11-29 12:16 | PRG ---
DATE OF SERVICE: 11/29/2018 SUBJECTIVE: Clarence Silver is sitting on a bedside chair, doing well. OBJECTIVE: VITAL SIGNS: Heart rates in the 90s, respiratory rate in the low 20s, and oximetry is in the low to mid 90s. LUNGS: Clear. HEART: Regular rhythm. S1 and S2 normal. ABDOMEN: Soft and nontender. EXTREMITIES: Without clubbing, cyanosis, or edema. LABORATORY DATA: White count 10, hemoglobin 8.8, and platelets 72,000. Sodium 141, potassium 3, chloride 113, bicarb 21, BUN 11, creatinine 0.6, and albumin is 2.5. IMPRESSION AND PLAN: Respiratory failure requiring overnight ventilation for metabolic acidosis after presenting with clinical sepsis associated with ureteral stone. Blood cultures were negative surprisingly. The renal drainage out of the stent grew Escherichia coli and the urine culture grew Escherichia coli as well. This is a pansensitive Escherichia coli. She can probably be switched to p.o. antibiotics when Dr. De Leon feels it is appropriate. She is stable to move out of the critical care unit. Job ID: [id number]
--- NOTE | 2018-11-30 06:06 | PDOC.FM ---
- Subjective Subjective: 78 yo male seen at bedside this AM. Patient is doing well this AM. No new complaints. She is ready to go to rehab to get back on her feet. - Objective Vital Signs & Weight: Vital Signs (12 hours) Temp Pulse Resp BP Pulse Ox 11/30/18 04:00 98.3 F 82 16 135/65 93 L 11/30/18 02:00 95 11/29/18 23:35 99.1 F 79 16 143/64 H 95 11/29/18 20:00 98.2 F 80 16 153/73 H 96 11/29/18 18:30 95 Weight Admit Weight 88 kg Weight 85.445 kg Most Recent Monitor Data Heart Rate from ECG 85 NIBP 141/68 NIBP BP-Mean 92 Respiration from ECG 24 SpO2 91 I&O: 11/28/18 11/29/18 11/30/18 06:59 06:59 06:59 Intake Total 3621.8 3219 1232 Output Total 1150 3825 2450 Balance 0721.8 -091 -0505 Result Diagrams: 11/30/18 06:00 11/30/18 06:00 Phys Exam - Physical Examination Constitutional: NAD HEENT: moist MMs Respiratory: no wheezing, clear to auscultation bilateral Cardiovascular: RRR, no significant murmur Gastrointestinal: soft, non-tender, no distention, positive bowel sounds Musculoskeletal: no edema, pulses present Neurological: non-focal, moves all 4 limbs Psychiatric: normal affect, A&O x 3 Skin: no rash Dx/Plan (1) Sepsis Code(s): A41.9 - SEPSIS, UNSPECIFIED ORGANISM Status: Resolved (2) Urinary tract obstruction by kidney stone Code(s): N20.0 - CALCULUS OF KIDNEY; N13.8 - OTHER OBSTRUCTIVE AND REFLUX UROPATHY Status: Acute (3) Diabetes mellitus Code(s): E11.9 - TYPE 2 DIABETES MELLITUS WITHOUT COMPLICATIONS Status: Acute (4) Colon cancer metastasized to liver Code(s): C18.9 - MALIGNANT NEOPLASM OF COLON, UNSPECIFIED; C78.7 - SECONDARY MALIG NEOPLASM OF LIVER AND INTRAHEPATIC BILE DUCT Status: Acute (5) Hypokalemia Code(s): E87.6 - HYPOKALEMIA Status: Acute (6) Thrombocytopenia Code(s): D69.6 - THROMBOCYTOPENIA, UNSPECIFIED Status: Acute - Plan Plan: Septic shock 2/2 complicated UTI with obstructing nephrolithiasis, resolved - Initial labs in our ED showed WBC 12.1, lactic 5.0, hypotension - CT showed acute L obstructive uropathy with 8mm proximal L ureteral calculus - Continue rocephin (11/27), will transition to PO antibiotics today. - Urine culture - e coli, universal sensitivity - Appreciate Urology recommendations - Appreciate Pulm recommendations, patient extubated 11/28 and doing well Hypotension 2/2 above, resolved - started on levophed in ED and came off after surgery - BP WNL - Will restart home meds today Lactic acidosis, resolved - 4.9->5.0 -> 1.0 Metabolic acidosis - resolved - 2/2 above Hypokalemia, improved - K+ 2.9 - Will replete Hypocalcemia - 7.2, continue to monitor Chronic normocytic anemia - Hgb at baseline - likely 2/2 chronic disease Metastatic colon cancer - s/p colon resection with colostomy, liver resection - Dr. Harris is oncologist. Recently completed another round of chemo with repeat PET scheduled. DM2 - accuchecks and SSI - will continue home metformin when able Thrombocytopenia - This AM 81 - Held lovenox this AM until platelet count received and deemed appropriate - Will monitor for signs of bleeding - Make appropriate transfusions as needed Disposition: Stable, Patient will be evaluated for rehab placement today. Addendum - Attending - Attending Attestation Date/Time: 11/30/18 5136 I personally evaluated the patient and discussed the management with Dr. Diez. I agree with the History, Examination, Assessment and Plan documented above with any addition or exceptions noted below. Sepsis secondary to E coli complicated UTI with obstructing stone- s/p ureteral stent- to [facility] today with po cipro (until urology performs lithotripsy). Hypokalemia- replaced today. Will need repeat in next 24-48 hours thrombocytopenia- most likely from infection- increasing. Stable for d/c to swing bed today.
[2018-11-30 06:30] LABS: ALT (SGPT) 10 U/L (8-55); AST (SGOT) 13 U/L (5-34); Albumin 2.7 g/dL (3.4-4.8); Alkaline Phosphatase 103 U/L (40-150); Anion Gap 8 mmol/L (10-20); BUN (Urea Nitrogen) 7 mg/dL (9.8-20.1); Bilirubin, Total 0.5 mg/dL (0.2-1.2); Calc. Creatinine Clearance 96 mL/min (70-130); Calcium 7.9 mg/dL (7.8-10.44); Carbon Dioxide 26 mmol/L (23-31); Chloride 111 mmol/L (98-107); Estimated GFR-MDRD 86; Globulin 2.3 g/dL (2.4-3.5); Glucose 115 mg/dL (83-110); Sodium 142 mmol/L (136-145)
[2018-11-30 06:34] LABS: Potassium 2.9 mmol/L (3.5-5.1)
[2018-11-30] MEDS ORDERED: Potassium Chloride 20 MEQ TAB PO SCH (07:00)
[2018-11-30 07:08] LABS: Hemoglobin 8.8 g/dL (12.0-16.0); Mean Corpuscular HGB CONC 32.2 g/dL (32.0-36.0); Mean Corpuscular Hemoglobin 30.2 pg (27.0-31.0); Mean Corpuscular Volume 93.8 fL (78.0-98.0); Mean Platelet Volume 9.1 fL (7.4-10.4); Platelet Count 81 thou/uL (130-400); RBC Distribution Width 14.9 % (11.5-14.5); Red Blood Cell (RBC) Count 2.92 mill/uL (4.20-5.40)
[2018-11-30] MEDS: cefTRIAXone\\ROCEPHIN 1 GM in Sodium Chloride 0.9% 100 ML IVPB SCH (08:21)
[2018-11-30 08:28] VITALS: BP 154/72; TEMP 98.1
[2018-11-30] MEDS ORDERED: Losartan 25 MG TAB PO SCH (09:00)
[2018-11-30] MEDS ORDERED: Fluticasone Propionate Nasal Spray 16 gm Bottle NASAL SCH (09:00)
[2018-11-30] MEDS ORDERED: Loratadine 10 MG TAB PO SCH (09:00)
[2018-11-30] MEDS ORDERED: Ciprofloxacin 500 MG TAB PO SCH ×2 (09:00→20:00)
[2018-11-30] MEDS ORDERED: metFORMIN 500 MG TAB PO SCH (09:00)
[2018-11-30 09:57] LABS: Band 26 % (5-11); Eosinophils 1 % (0-10); Lymphocytes 22 % (21-51); MDiff Complete? YES; Monocytes 3 % (0-10); Neutrophil 47 % (42-75); Platelet Morphology Comment Appears Decreased; Polychromasia SLIGHT = 2-3 cells (100X) (0-2/hpf); Reactive Lymphocytes 1 % (0-10)
[2018-11-30] MEDS: HumaLOG 300 UNITS/3 ML VIAL SC PRN (11:44)
--- NOTE | 2018-11-30 13:57 | DIS ---
DATE OF ADMISSION: 11/27/2018 DATE OF DISCHARGE: 11/30/2018 RESIDENT: Dr. Diez. ADMITTING ATTENDING: Abdon Huerta MD. CONSULTS: 1. Case Management. 2. Pulmonology, Dr. Jarrell. 3. Urology, Dr. De Leon. 4. OT evaluation and treatment. 5. PT evaluation and treatment. 6. Rehab Screening. PROCEDURES: 1. On 11/27/2018, the patient underwent a retrograde pyelogram that showed catheter placement in left ureter and opacification of left collecting structures. There is a double pigtail left ureteral stent on the final image noted. 2. On 11/27/2018, the patient underwent a stent placement by Dr. De Leon in the left ureter due to septic shock, urinary tract infection and left proximal ureteral stone. PRIMARY DIAGNOSES: 1. Sepsis secondary to a urinary tract infection and obstruction by a kidney stone, resolved. 2. Urinary tract obstruction by kidney stone. 3. Metastatic colon cancer. 4. Diabetes mellitus. 5. Hypokalemia. 6. Thrombocytopenia. DISCHARGE MEDICATIONS: 1. Simethicone 160 mg p.o. t.i.d. 2. Acetaminophen 500 mg p.o. q.4h p.r.n. 3. Artifical Tears, 2 drops each eye b.i.d. 4. Calcium carbonate 500 mg p.o. q.6h. 5. Flonase 2 sprays each nostril daily. 6. Ibuprofen 400 mg p.o. q.6h. p.r.n. 7. Loperamide 2 mg p.o. p.r.n. 8. Losartan 100 mg p.o. daily. 9. Milk of magnesia 30 mL p.o. daily p.r.n. 10. Protonix 40 mg p.o. daily. 11. Sertraline 100 mg p.o. q.a.m. 12. Metformin 500 mg p.o. b.i.d. 13. Ciprofloxacin 500 mg p.o. b.i.d. DISCONTINUED MEDICATION: Aspirin 81 mg. HISTORY OF PRESENT ILLNESS AND HOSPITAL COURSE: The patient is a 78-year-old female with a past medical history of metastatic colon cancer, type 2 diabetes, was transferred from the [facility] ED. The patient was not feeling well that night. She started having nausea, vomiting, intense left-sided flank pain and back pain. In the [facility] ED, she was found to have an obstructing renal calculus on CT. The patient denied any prior kidney stones. She denied any dysuria, hematuria, chest pain, shortness of breath or fever at this time. She has not been on any antibiotics recently. Currently she lives at home alone. During this hospitalization, the patient was immediately taken back for the stent placement Dr. De Leon, Urology due to the septic shock and the urinary tract infection and obstructing stone. Patient was intubated during procedure and transferred to the ICU for further monitoring. The patient was seen by Dr. Jarrell due to having to be intubated for the procedure and remained intubated until 11/28/2018. The patient otherwise recovered very well. The patient had a urine culture. The renal stent that did grow out E. coli that was abel sensitive to all antibiotics. The patient did have blood cultures that were surprisingly negative at that time. The patient really did not have any further remarkable laboratory values other than mildly low potassium that has been repleted. The patient did have admission white blood cell count of 12.1. It did trend down to day of discharge of 9.0. The patient otherwise was afebrile for greater than 48 hours prior to discharge. The patient again lives at home and she was seen and evaluated by rehab screening for possible placement into rehab to regain her strength prior to going home to make sure that she has a safe discharge plan. The patient was accepted by Dr. Farfan with [facility] and was transfer was arranged for her at that time. Otherwise, the patient tolerated the hospitalization well and was discharged in appropriate condition. DISPOSITION: Stable. DISCHARGE INSTRUCTIONS: Location: She will be discharged to the [facility]. Diet: A diabetic diet. Activity: As tolerated with no restrictions; however she will be working with PT and OT closely to regain her strength. Followup: Will be with her primary care provider, Dr. Marck Farfan who accepted her into the rehab program as well as well see her as an outpatient basis. The patient will be seeing Dr. De Leon as an outpatient as well. He plans to have a procedure to remove the stent as well as the obstructing stone at sometime next week. Job ID: [id number] [facility]
== END 2018-11-30 14:57 | DRG 853 ==
LOC: ERS 10:48 → SDC 12:36 → CCU 13:39 → ONC 11-29 17:38
PROVIDERS: ADMIT Urology; ATTEND Urology
PROC: 0T778DZ Dilation of Left Ureter with Intraluminal Device, Via Natural or Artificial Opening Endoscopic (ICD-10-PCS; principal; 2018-11-27)
PROC: BT1F0ZZ Fluoroscopy of Left Kidney, Ureter and Bladder using High Osmolar Contrast (ICD-10-PCS; 2018-11-27)
DX: A41.51 Sepsis due to Escherichia coli [E. coli] (principal); R65.21 Severe sepsis with septic shock; E87.2 Acidosis; C78.7 Secondary malignant neoplasm of liver and intrahepatic bile duct; C18.9 Malignant neoplasm of colon, unspecified; N39.0 Urinary tract infection, site not specified; N20.2 Calculus of kidney with calculus of ureter; N13.8 Other obstructive and reflux uropathy; E11.65 Type 2 diabetes mellitus with hyperglycemia; I10 Essential (primary) hypertension; E87.6 Hypokalemia; D69.6 Thrombocytopenia, unspecified; Z96.643 Presence of artificial hip joint, bilateral; Z85.038 Personal history of other malignant neoplasm of large intestine; Z90.49 Acquired absence of other specified parts of digestive tract; Z90.710 Acquired absence of both cervix and uterus; Z90.89 Acquired absence of other organs; Z87.891 Personal history of nicotine dependence; Z93.3 Colostomy status
CPT/HCPCS: 36415; 36416; 74420; 80053; 82805; 83605; 85025; 87070; 87077; 87186; 87205; 93005; 94002; 94003; 96360; 96365; C1758; C1769; J0131; J0696; J1650; J2001; J2370; J2405; J2704; J3010; J3370; J3480; J7050; Q9961

== ENCOUNTER 2018-12-08 05:44 | Day surgery (SDC) | payer MEDICARE ==
[2018-12-08] MEDS ORDERED: Fentanyl 100 MCG/2 ML VIAL ONE (07:11)
--- NOTE | 2018-12-08 09:07 | RAD ---
KUB: INDICATIONS: Preop evaluation. COMPARISON: Prior IVP, dated 11/27/2018. FINDINGS: Left double-J ureteral stent appears unchanged in position. There is a 4 mm stone seen adjacent to t he left proximal ureteral stent. There is a left lower quadrant ostomy. Bowel gas pattern is unobst ructed. There are bilateral total hip replacements. IMPRESSION: 1. 4 X 9 mm stone is still remain within the proximal left ureter. 2. Stable left ureteral stent. 3. Left lower quadrant ostomy. POS: BH
--- NOTE | 2018-12-08 10:45 | OP ---
DATE OF PROCEDURE: 12/08/2018 PREOPERATIVE DIAGNOSIS: Left ureteral stone. POSTOPERATIVE DIAGNOSIS: Left ureteral stone. PROCEDURE PERFORMED: Left extracorporeal shock wave lithotripsy. ANESTHESIA: General. ESTIMATED BLOOD LOSS: Not recorded. FINDINGS: There was an 8 x 3 mm proximal left ureteral stone treated with 3000 shocks at maximum level 5, probably half at level 4 and the second half at level 5. She had a stent placed a couple of weeks ago for sepsis related to this and the stent was left in place. The stone did appear to fragment. DESCRIPTION OF PROCEDURE: Obtained written and verbal consent from the patient after being sure preoperative blood work was normal and making sure we could see her stone on a KUB, she was taken to the operating suite. She was placed in supine position on the treatment table. PlexiPulses were placed on her lower extremities and turned on. She was given a general anesthetic and oral obturator intubation. She was coupled to the lithotripsy unit, and the stone was placed in treatment focal point. Shockwave therapy was commenced, started at very low kV and slowly worked up to level 4 and then the second half to level 5. Fluoroscopy was used intermittently to document stone fragmentation and reposition as necessary. The patient did not receive any IV antibiotics. She has been on oral Cipro and actually took an oral Cipro this morning. At the end of 3000 shocks, she was awakened and extubated and taken by girish to recovery room. Job ID: [id number]
[2018-12-08] MEDS ORDERED: Sodium Chloride 0.9% 10 ML ONE (11:12)
== END 2018-12-08 11:20 | disposition home or self-care (01) ==
LOC: SDC 05:44
PROVIDERS: ATTEND Urology
PROC: 0TF7XZZ Fragmentation in Left Ureter, External Approach (ICD-10-PCS; principal; 2018-12-08)
DX: N20.1 Calculus of ureter (principal); E11.9 Type 2 diabetes mellitus without complications; I10 Essential (primary) hypertension; Z79.2 Long term (current) use of antibiotics; Z79.84 Long term (current) use of oral hypoglycemic drugs; Z79.899 Other long term (current) drug therapy; Z88.2 Allergy status to sulfonamides
CPT/HCPCS: 74018; J1642; J3010

== ENCOUNTER 2019-01-11 12:21 | Outpatient (CLI) | payer MEDICARE ==
--- NOTE | 2019-01-11 14:57 | PET ---
EXAM: PET/CT HISTORY: History of colon cancer and hepatic metastatic disease TECHNIQUE: PET scanning with CT attenuation correction was performed from the base of the brain to the proximal thighs following the intravenous administration of 11.9 millicuries [id number]. COMPARISON: PET/CT dated October 20, [address] the abdomen and pelvis with contrast dated September 142018 FINDINGS: Biodistribution:The biodistribution for the exam appears acceptable. Head and neck: There is appropriate background activity within the brain. There is a focus is of incr eased metabolic activity seen involving the palatine tonsils, right greater than left that appears slightly less prominent than the prior exam. No definite hypermetabolic lymphadenopathy or mass is id entified. Thorax: No hypermetabolic pulmonary lesion, pleural effusion or lymphadenopathy is present. Abdomen and pelvis: There is expected background activity within the GI and systems.There is heter ogeneous activity seen within the left hepatic lobe adjacent to the hepatic resection margin suspicious for metastatic disease. One of the largest lesions is seen within the superior aspect of t he left hepatic lobe measuring approximately 3.1 x 3.1 cm with a peak SUV activity of 4.45 and a mean activity of 3.45. There is an additional 3 cm focus of hypermetabolic activity involving the med ial left hepatic lobe, adjacent to the resection margin, with a peak SUV activity of 3.89 a mean activity of 3.02. No additional focus of hypermetabolic activity is demonstrated outside of the expec cliff background activity in the GI and system. There is a left lower quadrant ostomy. Osseous structures and skin: No hypermetabolic skin or osseous lesion is identified. IMPRESSION: Abnormal PET scan 1. There is heterogeneous hypermetabolic activity involving the left hepatic lobe, adjacent to the he patic resection margin, suspicious for metastatic lesions. The number and margins of the lesions are poorly differentiated on the current noncontrast CT examination. Follow-up of the extent of the h epatic metastatic disease may be better assessed utilizing a multiphase CT examination of the abdomen. This could be utilized to compare the size and extent of the lesions to the prior CT the abd omen and pelvis dated October 01, 2018. 2. No additional sites of distant metastatic disease demonstrated.
== END 2019-01-11 12:22 | disposition home or self-care (01) ==
LOC: PET 12:21
PROVIDERS: ATTEND Internal Medicine Hematology & Oncology
DX: C18.7 Malignant neoplasm of sigmoid colon (principal)
CPT/HCPCS: 78815; A9552

== ENCOUNTER 2019-01-31 15:57 | Inpatient (IN) | payer MEDICARE ==
[2019-01-31 16:40] LABS: #Eosinphils 0.1 thou/uL (0.0-0.7); #Lymphocytes 1.3 thou/uL (1.20-3.40); #Monocytes 0.3 thou/uL (0.11-0.59); #Neutrophils 3.7 thou/uL (1.40-6.50); %Basophils 0.7 % (0.0-1.0); %Eosinophils 1.9 % (0.0-10.0); %Lymphocytes 23.8 % (21.0-51.0); %Monocytes 5.6 % (0.0-10.0); Hemoglobin 11.3 g/dL (12.0-16.0); Mean Corpuscular HGB CONC 32.7 g/dL (32.0-36.0); Mean Corpuscular Hemoglobin 29.6 pg (27.0-31.0); Mean Corpuscular Volume 90.4 fL (78.0-98.0); Mean Platelet Volume 8.8 fL (7.4-10.4); Platelet Count 99 thou/uL (130-400); RBC Distribution Width 13.8 % (11.5-14.5); Red Blood Cell (RBC) Count 3.81 mill/uL (4.20-5.40); White Blood Cell (WBC) Count 5.4 thou/uL (4.8-10.8)
[2019-01-31 16:50] LABS: ALT (SGPT) Less than 7 U/L (8-55); AST (SGOT) 14 U/L (5-34); Alkaline Phosphatase 86 U/L (40-150); Anion Gap 12 mmol/L (10-20); BUN (Urea Nitrogen) 14 mg/dL (9.8-20.1); Bilirubin, Total 0.5 mg/dL (0.2-1.2); Calc. Creatinine Clearance 0 mL/min (70-130); Calcium 9.7 mg/dL (7.8-10.44); Carbon Dioxide 27 mmol/L (23-31); Chloride 106 mmol/L (98-107); Estimated GFR-MDRD 81; Glucose 87 mg/dL (83-110); MDiff Complete? YES; Platelet Morphology Comment Appears Decreased; Polychromasia SLIGHT = 2-3 cells (100X) (0-2/hpf); Potassium 3.7 mmol/L (3.5-5.1); Sodium 141 mmol/L (136-145)
[2019-01-31 17:02] LABS: Bilirubin Negative (Negative); Blood, Urine Large (Negative); Clarity CLOUDY (Clear); Glucose, Urine (Dipstick) Negative (Negative); Leukocyte Large (Negative); Nitrite Negative (Negative); Protein, Urine (Dipstick) Trace mg/dL (Neg-Trace); Specific Gravity, Urine 1.013 (1.002-1.036); Urobilinogen 0.2 mg/dL (0.2-1.0); pH, Urine 6.5 (5.0-9.0)
[2019-01-31 17:07] LABS: Bacteria/HPF None Seen HPF (None Seen); Pathc Cast-AUWi Flag 2.72 (0-2.49); RBC/HPF GREATER THAN 50-TNTC HPF (0-3); Squamous Epithelial 0-3 HPF (0-3)
[2019-01-31 17:32] LABS: Hyaline Casts/LPF 0-3 HYALINE CAST LPF (0-3 Hyaline); Other Casts/LPF None Seen LPF (0-3 Hyaline)
[2019-01-31] MEDS ORDERED: cefTRIAXone\\ROCEPHIN 2 GM VIAL ONE (18:04)
--- NOTE | 2019-01-31 18:11 | PDOC.FPRHP ---
- History of Present Illness Chief Complaint: UTI History of Present Illness: Ms Silver is a 78yo female with pmh of DMII and colon cancer on chemotherapy who presented to the ED at the recommendation of her Urologist Dr De Leon. She was recently admitted in November for sepsis 2/2 infected kidney stone. She underwent lithotripsy and was discharged on Cipro. Pt reports she stopped taking Cipro 1 week and 2 days ago and 2 days later developed dysuria, frequency. Called her urologist on Thursday who instructed her to leave urine sample at lab. She called back today and was told to go to ED. Denies fevers, chills, n/v, flank pain. PCP: Dr Farfan ED Course: Ceftriaxone 2g - Allergies/Adverse Reactions Allergies Allergy/AdvReac Type Severity Reaction Status Date / Time Sulfa (Sulfonamide Allergy rash, Verified 12/07/18 13:19 Antibiotics) temperature - Home Medications Medication Instructions Recorded Confirmed Type Artificial Tear Niki 15ml Bot 2 drop EA EYE BID bot 01/21/18 01/31/19 Rx [Tears Renewed] Fluticasone Propionate [Flonase 0 gm NASAL DAILY #0 bot 01/21/18 01/31/19 Rx Nasal Marlow] Pantoprazole [Protonix] 40 mg PO DAILY #30 tab 01/21/18 01/31/19 Rx Acetaminophen [Tylenol Extra 500 mg PO Q4HR PRN tab 12/07/18 01/31/19 Rx Strength] Losartan [Cozaar] 100 mg PO DAILY tab 12/07/18 01/31/19 Rx Magnesium Hydroxide [Milk Of 30 ml PO DAILYPRN PRN udcup 12/07/18 01/31/19 Rx Magnesium] Sertraline HCl [Zoloft] 100 mg PO QAM tab 12/07/18 01/31/19 Rx Simethicone [Mylicon Chewable] 160 mg PO TID PRN tab 12/07/18 01/31/19 Rx metFORMIN [Glucophage] 500 mg PO BID tab 12/07/18 01/31/19 Rx Calcium Carbonate [Tums] 500 mg PO Q6HR PRN 01/31/19 01/31/19 History - History PMHx: metastatic colon cancer s/p colostomy, liver resection. DM2, seasonal allergies PSHx: Bilateral hip replacements, colonic resection w/ colostomy 2017, liver resection, back surgery, tonsillectomy, hysterectomy, appendectomy, cholecystectomy FHx: Unknown, adopted Social: Prior tobacco use of 30 pack years, quit 25 yrs ago. Drinks 2 glasses wine/week. No drug use. - Review of Systems General: denies: fever/chills, weight/appetite/sleep changes Eyes: denies: eye pain, vision changes ENT: denies: nasal congestion, rhinorrhea Respiratory: denies: cough, congestion, shortness of breath Cardiovascular: denies: chest pain, palpitation Gastrointestinal: reports: other (denies flank pain). denies: nausea, vomiting , diarrhea, abdominal pain Genitourinary: reports: dysuria, other (frequency Denies hematuria) Skin: denies: rashes, lesions Musculoskeletal: denies: pain, tenderness - Vital signs BP: 135/67 HR: 67 RR: 17 Tmax: 98.9 Pox: 98% on RA Wt: 83.9kg - Physical Exam Constitutional: NAD, awake, alert and oriented HEENT: normocephalic and atraumatic, conjunctiva clear, grossly normal hearing, MMM, oropharynx clear Neck: supple, trachea midline Heart: RRR, no murmurs/rubs/gallops Lungs: CTAB, no respiratory distress Abdomen: soft, non-tender, bowel sounds present, other (No CVA tenderness) Musculoskeletal: normal tone, ROM grossly normal Neurological: no focal deficit Skin: good turgor, capillary refill <2 seconds Heme/Lymphatic: no unusual bruising or bleeding Psychiatric: normal mood and affect, good judgment and insight, intact recent and remote memory FMR H&P: Results - Labs Result Diagrams: 01/31/19 16:15 01/31/19 16:15 Lab results: WBC 5.4 thou/uL (4.8-10.8) 01/31/19 16:15 Hgb 11.3 g/dL (12.0-16.0) L 01/31/19 16:15 Hct 34.4 % (36.0-47.0) L 01/31/19 16:15 MCV 90.4 fL (78.0-98.0) 01/31/19 16:15 Plt Count 99 thou/uL (130-400) L 01/31/19 16:15 Neutrophils % 68.0 % (42.0-75.0) 01/31/19 16:15 Sodium 141 mmol/L (136-145) 01/31/19 16:15 Potassium 3.7 mmol/L (3.5-5.1) 01/31/19 16:15 Chloride 106 mmol/L (98-107) 01/31/19 16:15 Carbon Dioxide 27 mmol/L (23-31) 01/31/19 16:15 BUN 14 mg/dL (9.8-20.1) 01/31/19 16:15 Creatinine 0.70 mg/dL (0.6-1.1) 01/31/19 16:15 Glucose 87 mg/dL (83-110) 01/31/19 16:15 Calcium 9.7 mg/dL (7.8-10.44) 01/31/19 16:15 Total Bilirubin 0.5 mg/dL (0.2-1.2) 01/31/19 16:15 AST 14 U/L (5-34) 01/31/19 16:15 ALT Less than 7 U/L (8-55) L 01/31/19 16:15 Alkaline Phosphatase 86 U/L (40-150) 01/31/19 16:15 Serum Total Protein 7.0 g/dL (6.0-8.3) 01/31/19 16:15 Albumin 4.0 g/dL (3.4-4.8) 01/31/19 16:15 Urine Ketones Negative mg/dL (Negative) 01/31/19 16:49 Urine Blood Large (Negative) H 01/31/19 16:49 Urine Nitrite Negative (Negative) 01/31/19 16:49 Ur Leukocyte Esterase Large (Negative) H 01/31/19 16:49 Urine RBC GREATER THAN 50-TNTC HPF (0-3) H 01/31/19 16:49 Urine WBC Greater Than 50-TNTC HPF (0-3) H 01/31/19 16:49 Ur Squamous Epith Cells 0-3 HPF (0-3) 01/31/19 16:49 Urine Bacteria None Seen HPF (None Seen) 01/31/19 16:49 FMR H&P: A/P - Problem List (1) UTI (urinary tract infection) Current Visit: Yes Status: Acute (2) Colon cancer metastasized to liver Current Visit: No Status: Acute Code(s): C18.9 - MALIGNANT NEOPLASM OF COLON , UNSPECIFIED; C78.7 - SECONDARY MALIG NEOPLASM OF LIVER AND INTRAHEPATIC BILE DUCT (3) DM (diabetes mellitus), type 2, uncontrolled Current Visit: No Status: Chronic Code(s): E11.65 - TYPE 2 DIABETES MELLITUS WITH HYPERGLYCEMIA (4) Hypertension Current Visit: No Status: Chronic Code(s): I10 - ESSENTIAL (PRIMARY) HYPERTENSION - Plan Ms Silver is a 78yo female with pmh of DMII and colon cancer on chemotherapy admitted for UTI failed outpt tx UTI - Afebrile, no leukocytosis. VSS - Tx for infected urolithiasis in November, has been following with Dr De Leon - Urine culture 01/28: Proteus sensitive to Ceftriaxone - s/p Ceftriaxone in the ED, will continue and likely transition to PO antibiotics tomorrow or the in preparation for discharge - Repeat urine culture pending - Will discuss case with Dr De Leon - Admit to medical Chronic normocytic anemia - Hgb 11.3 Metastatic colon cancer - s/p colon resection with colostomy, liver resection - Dr. Harris is oncologist DMII - ACHS accuchecks, SSI, hypoglycemic protocol - Continue home metformin Code Status: FULL DVT ppx: SCDs PCP: Dr Farfan FMR H&P: Upper Level - Pertinent history 78 yo F with PMH recent sepsis 2/2 urolithiasis and multiple urologic procedures , metastatic colon CA with colostomy, and DM2 presenting per Dr. De Leon's recommendation. Pt had a urine culture obtained a few days ago which showed MDR Proteus and has continued to have urinary tract symptoms. Pt has been on Cipro outpatient that was stopped prior to this urine culture, when symptoms returned. - Pertinent findings VSS, afebrile Gen: NAD CV: RRR Resp: CTAB Abd: no CVAT - Plan Date/Time: 01/31/191810 I, Tano Feliciano MD PGY3, have evaluated this patient and agree with findings/ plan as outlined by [employer] intern resident. Pertinent changes/additions are listed here. 1. MDR Proteus UTI failed outpatient treatment -Pt has underwent multiple urologic procedures for treatment of an infected urolithiasis, most recently ESWL on 12/[address] De Leon. It is unclear whether the stone has been passed but pt no longer has stent in place and has been on oral Cipro up until last week when symptoms returned. Culture shows resistance to Cipro so pt started on Ceftriaxone in ER. -Pt presents without fever, leukocytosis or abnormal vital signs. -Will plan to admit pt for IV abx and monitor response. Consider urology consultation in case further evaluation/intervention is needed for continued infected urolithiasis. -Await repeat urine culture results. -mIVF disposition: Due to failed outpt treatment, admit to inpatient medical for anticipated length of stay greater than two midnights, pending clinical course. Addendum - Attending - Attending Attestation Date/Time: 01/31/19 5748 I personally evaluated the patient and discussed the management with Dr. Uriostegui /Braden. I agree with the History, Examination, Assessment and Plan documented above with any addition or exceptions noted below. Patient with history of immunosuppression due to chemo for CRC here with symptoms of UTI and positive urine cx obtained by her Urologist outpatient. She does not appear septic. Has history of nephrolithiasis requiring ECSWL therapy a few months ago. Does not appear to have major ascending infection at this time. Continue Rocephin, repeat cx. Will consult her outpatient Urologist in the AM as he is apparently the one who recommended she present to hospital. Further mgmt per clinical course.
[2019-01-31] MEDS ORDERED: Acetaminophen 500 MG TAB PO PRN (19:46)
[2019-01-31] MEDS ORDERED: Dextrose 50% Abboject 50 ML SYRINGE SLOW IVP PRN (19:46)
[2019-01-31] MEDS ORDERED: Calcium Carbonate 500 MG ChewTAB PO PRN (19:46)
[2019-01-31] MEDS ORDERED: HumaLOG 300 UNITS/3 ML VIAL SC PRN (19:46)
[2019-01-31] MEDS ORDERED: Ondansetron ODT 4 MG TAB PO PRN (19:46)
[2019-01-31] MEDS ORDERED: Milk Of Magnesia 30 ML UDCUP PO PRN (19:46)
[2019-01-31] MEDS ORDERED: Simethicone Chewable 80 MG TAB PO PRN (19:46)
[2019-01-31] MEDS ORDERED: Dextrose 5% in Water 1,000 ML IV PRN (19:46)
[2019-01-31] MEDS ORDERED: cefTRIAXone\\ROCEPHIN 1 GM in Sodium Chloride 0.9% 100 ML IVPB SCH (20:00)
[2019-01-31] MEDS: metFORMIN 500 MG TAB PO SCH (20:55)
[2019-01-31 21:04] VITALS: BMI 30.7
[2019-02-01] MEDS: Artificial Tear Sol 15 ML BOT EA EYE SCH ×3 (02:20→20:01)
[2019-02-01 06:21] LABS: #Eosinphils 0.1 thou/uL (0.0-0.7); #Lymphocytes 1.3 thou/uL (1.20-3.40); #Monocytes 0.4 thou/uL (0.11-0.59); #Neutrophils 2.8 thou/uL (1.40-6.50); %Basophils 0.4 % (0.0-1.0); %Eosinophils 1.8 % (0.0-10.0); %Lymphocytes 28.8 % (21.0-51.0); Mean Corpuscular HGB CONC 32.4 g/dL (32.0-36.0); Mean Corpuscular Hemoglobin 29.4 pg (27.0-31.0); Mean Corpuscular Volume 90.5 fL (78.0-98.0); Platelet Count 80 thou/uL (130-400); RBC Distribution Width 13.7 % (11.5-14.5); Red Blood Cell (RBC) Count 3.75 mill/uL (4.20-5.40); White Blood Cell (WBC) Count 4.7 thou/uL (4.8-10.8)
--- NOTE | 2019-02-01 07:44 | PDOC.FM ---
- Subjective Subjective: pt resting comfortably in bed, reports burning with urination. tolerating PO - Objective Vital Signs & Weight: Vital Signs (12 hours) Temp Pulse Resp BP BP Pulse Ox 02/01/19 04:00 97.7 F 54 L 15 148/71 H 96 02/01/19 00:00 97.9 F 59 L 18 145/81 H 96 01/31/19 20:35 98.1 F 58 L 18 160/82 H 96 01/31/19 20:05 98.1 F 58 L 18 160/82 H 96 Weight Weight 83.915 kg I&O: 01/31/19 02/01/19 02/02/19 06:59 06:59 06:59 Intake Total 300 Balance 300 Result Diagrams: 02/01/19 05:50 01/31/19 16:15 Phys Exam - Physical Examination Constitutional: NAD HEENT: moist MMs Neck: no JVD Respiratory: clear to auscultation bilateral Cardiovascular: no significant murmur Gastrointestinal: soft, no distention tender over suprapubic area Musculoskeletal: no edema Neurological: moves all 4 limbs Lymphatic: no nodes Psychiatric: normal affect Skin: no rash Dx/Plan (1) UTI (urinary tract infection) Status: Acute (2) Diabetes mellitus Code(s): E11.9 - TYPE 2 DIABETES MELLITUS WITHOUT COMPLICATIONS Status: Acute (3) 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 VSS - Tx for infected urolithiasis in November, has been following with Dr De Leon - Urine culture 01/28: Proteus sensitive to Ceftriaxone - s/p Ceftriaxone in the ED, continue, consider txfr to oral today or tomorrow - Urology, Dr. De Leon consulted, appreciate recs - UCx pending Chronic normocytic anemia - Hgb 11.3 Metastatic colon cancer - s/p colon resection with colostomy, liver resection - Dr. Harris is oncologist DMII - ACHS accuchecks, SSI, hypoglycemic protocol - Continue home metformin Code Status: FULL DVT ppx: SCDs PCP: Dr Farfan dispo: monitor on medical, treat w/ IV abx
[2019-02-01] MEDS: metFORMIN 500 MG TAB PO SCH ×2 (08:12→20:00)
[2019-02-01] MEDS: Losartan 25 MG TAB PO SCH (08:12)
[2019-02-01] MEDS: Fluticasone Propionate Nasal Spray 16 gm Bottle NASAL SCH (09:40)
--- NOTE | 2019-02-01 11:26 | ULT ---
ULTRASOUND RENAL: DATE: 02/01/2019 HISTORY: 78-year-old female with "abnormal urinalysis" FINDINGS: Poor visualization of kidneys, and especially urinary bladder, because of body habitus and overlying bowel gas causing shadowing. Right kidney: 10.5 x 5 x 5.5 cm Left kidney: 10.5 x 5 x 5.5 cm. 3 cm right renal upper pole cyst. No hydronephrosis. Bladder volume very low at time of scan. Very poor evaluation of bladder.. IMPRESSION: 1. Limited study 2. A 3 cm right renal cyst. 3. No hydronephrosis.
--- NOTE | 2019-02-01 12:22 | PRG ---
DATE OF SERVICE: 02/01/2019 Ms. Silver was admitted with a possible urinary tract infection. She had previously had a history of kidney stone that was infected. She had developed some increased dysuria and urinary frequency. She presented to our ER at the behest of her urologist and was admitted for intravenous antibiotics. After one dose of Rocephin, she feels improved. We will consult with her urologist regarding further management. Job ID: [id number]
--- NOTE | 2019-02-01 13:15 | CT ---
CT abdomen noncontrast CT pelvis noncontrast: (Urolithiasis protocol) DATE: 02/01/2019 HISTORY: 78-year-old female with colon cancer and liver metastasis and history of lithotripsy for calculus of kidneys. Urinary tract infection. COMPARISON: 11/27/2018 TECHNIQUE: IV injection of iodinated contrast media: None Oral contrast media: None FINDINGS: Other than for urolithiasis, the lack of IV and oral contrast limits the evaluation. The previously demonstrated 8 mm calculus in the proximal left ureter is no longer present in that lo cation. Instead, it has fragmented, and at least some of the fragments have migrated in retrograde fashion into left renal lower pole calyces. The largest of these fragments is an approximately 6 x 3 mm calculus. The previously demonstrated left hydronephrosis has resolved. The previously demonstrated fluid, perhaps hemorrhage, in the left perirenal space, has completely or almost complet raisa resolved now. The left kidney is no longer enlarged. Because of the right lobar subtotal hepatectomy, the right kidney has chronically migrated far superi renaldo, close to the right hemidiaphragm. Again noted is the 3.5 cm cyst at the right renal upper pole. There is no calculus in the right kidney. No hydronephrosis. At the lateral edge of the partial hepatectomy, there is a 3.7 cm hepatic cystic lesion. Heterogeneou s, ill-defined regions of low attenuation plus multiple small calcific densities are again noted at the remaining dome of the liver. Spleen is 13 x 14.5 x 7.5 cm no abdominal aortic aneurysm. Left mid abdomen colostomy. Rosa's pouch. No small bowel dilation. Diastases of left and right rectus abdominis muscles, with midline anterior protrusion of segment of colon. No pleural effusion. Bilater al metallic hip replacement hardware causes severe streak artifact, obscuring portions of the pelvic cavity. This includes obscuring of the UVJs, distal ureters, and much of the bladder. No free fluid identified. Absent uterus, gallbladder, and appendix. IMPRESSION: 1) status post lithotripsy of the previously demonstrated 8 mm calculus obstructing the left proximal ureter. 2) some of the fragments have migrated superiorly in retrograde fashion, and occupy left renal calyce s. 3) the previously demonstrated left hydronephrosis and left perirenal edema/hematoma, have resolved. 4) status post right lobar subtotal hepatectomy, partial colectomy, cholecystectomy, appendectomy, an d hysterectomy.
[2019-02-01] MEDS ORDERED: cefTRIAXone\\ROCEPHIN 1 GM in Sodium Chloride 0.9% 100 ML IVPB SCH (18:00)
--- NOTE | 2019-02-01 21:42 | CON ---
DATE OF CONSULTATION: 02/01/2019 Ms. Lima is a 78-year-old white female. This is a patient I am familiar with. I saw her not too long ago when she was in septic shock. Came into the emergency center with an obstructing left ureteral stone, which she required emergency stent placements, and when she recovered, underwent shockwave lithotripsy. At the time that she was septic, she had grown out Escherichia coli in her urine that was pansensitive, and Escherichia coli from the left renal collecting system that was pansensitive. Her shockwave was done on the 08 of December. The stone did appear to fragment. The stent was left in place. The stent has since been removed. Her followup KUB did not show any ureteral stone. She had a PET scan done a few weeks ago that showed some smaller fragments in the left lower pole collecting system. Actually towards the end of this past week about 4 to 5 days ago, she called with dysuria. The urine culture at that time grew out Proteus species that was highly resistant. It was resistant to Cipro, Levaquin, ampicillin-sulbactam, Bactrim, and sensitive to the third generation cephalosporins to the aminoglycosides and to meropenem. The counts were 50,000 to 75,000. She has had persistent dysuria. She has not been having fevers or chills, and she is afebrile in the hospital since she has been here. Her white count is normal. Chemistries show a normal creatinine of 0.7. Urinalysis with greater than 50 red cells, greater than 50 white cells. No bacteria were seen, but the culture did grow out the Proteus as mentioned just last week. We repeat; we did get a noncontrast CAT scan that I reviewed that shows some small stone fragments in the left lower pole collecting system. There is no evidence of ureteral stones, although the distal ureter cannot be seen as well because of some hardware. She had no hydronephrosis that has completely resolved. She has been started on Rocephin which does cover this bacteria. Her medical history is extensive. She has had a colon cancer, which I guess is probably stage IV. She has had colectomy and colostomy. She has had mets to the liver. I think she has had a hepatectomy. She was receiving chemotherapy with Dr. Harris. She has had bilateral hip replacements. She has had back surgery. She has had a history of diverticular disease with abscess. She has seen Dr. Loco here when she needs a surgeon. Her medical history includes diabetes, hypertension, and hyperlipidemia. She currently feels well except for the dysuria. I talked with her about the resistance of this bacteria. I think she probably needs a few days, probably 5 days of antibiotics and hopefully, this will clear this. Unfortunately, there is a risk that she has infected stones in which case this will come back and she will end up needing to get these remaining stone fragments removed. Rocephin would cover this organism for sure, I do not know if any oral agents, where there is an outside possibility, Omnicef 300 mg twice a day would. So, the decision to make in the next day or so is to sent her home with Omnicef or they just keep her here on IV Rocephin once a day or sensitive to step-down at [facility] where she is from to finish her IV antibiotics there. I do think she probably just needs to be at this point turn into an admission and over the next 24 hours, make a decision about what to send her out on. I will continue to follow along with you. Job ID: [id number]
--- NOTE | 2019-02-02 07:06 | PDOC.FM ---
- Subjective Subjective: pt resting comfortably in her chair, denies abdominal pain or dysuria - Objective Vital Signs & Weight: Vital Signs (12 hours) Temp Pulse Resp BP Pulse Ox 02/02/19 04:00 97.4 F L 60 16 169/74 H 93 L 02/02/19 00:10 97.8 F 62 18 159/80 H 96 02/01/19 20:17 97.7 F 56 L 16 156/76 H 97 02/01/19 19:25 97 Weight Weight 83.915 kg I&O: 02/01/19 02/02/19 02/03/19 06:59 06:59 06:59 Intake Total 300 1120 Balance 300 1120 Result Diagrams: 02/01/19 05:50 01/31/19 16:15 Phys Exam - Physical Examination Constitutional: NAD HEENT: moist MMs Neck: full ROM Gastrointestinal: no distention Musculoskeletal: pulses present Neurological: moves all 4 limbs Psychiatric: normal affect Skin: no rash Dx/Plan (1) UTI (urinary tract infection) Status: Acute (2) Diabetes mellitus Code(s): E11.9 - TYPE 2 DIABETES MELLITUS WITHOUT COMPLICATIONS Status: Acute (3) 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 VSS - Tx for infected urolithiasis in November, has been following with Dr De Leon - Urine culture 01/28: Proteus sensitive to Ceftriaxone - s/p Ceftriaxone in the ED, continue, consider txfr to oral today or tomorrow - Urology, Dr. De Leon consulted, appreciate recs - UCx pending Chronic normocytic anemia - Hgb 11.3 Metastatic colon cancer - s/p colon resection with colostomy, liver resection - Dr. Harris is oncologist DMII - ACHS accuchecks, SSI, hypoglycemic protocol - Continue home metformin Code Status: FULL DVT ppx: SCDs PCP: Dr Farfan dispo: monitor on medical, consider DC today on omnicef vs outpt rocephin tx
[2019-02-02] MEDS: Losartan 25 MG TAB PO SCH (08:11)
[2019-02-02] MEDS: metFORMIN 500 MG TAB PO SCH ×2 (08:11→20:32)
[2019-02-02] MEDS: Fluticasone Propionate Nasal Spray 16 gm Bottle NASAL SCH (08:22)
[2019-02-02] MEDS: Artificial Tear Sol 15 ML BOT EA EYE SCH ×2 (08:22→20:36)
--- NOTE | 2019-02-02 12:07 | PRG ---
DATE OF SERVICE: 02/02/2019 Ms. Silver continues to look and feel well. She is afebrile. We appreciate the input from Urology. Given that Ms. Silver possibly has retained stones, I believe we should complete a full 5-day course of intravenous antibiotics to ensure complete clearance of any infection. She seems agreeable to this. Job ID: [id number]
[2019-02-02] MEDS: cefTRIAXone\\ROCEPHIN 1 GM in Sodium Chloride 0.9% 100 ML IVPB SCH (17:04)
--- NOTE | 2019-02-02 20:19 | PRG ---
DATE OF SERVICE: 02/02/2019 This patient's vital signs are stable. She has been afebrile. She is in good spirits. She is not hurting. Her dysuria is improving. She has no new labs except for glucoses, which seemed to be adequate. She is on Rocephin, which covers for her Proteus urinary tract infection. It appears that she is probably going to be here for another three days on IV antibiotics and then will be discharged home. I have reviewed her CAT scan. She has some small stone fragments in the left lower pole. I think if her urinary tract infection resolves and does not return, we will probably just watch these stones. If she develops recurrent Proteus infection, then we will likely need to get rid of these. 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 This is the only Proteus I think she has ever had. Hopefully, this is the one that once it is treatable, would not come back. Job ID: [id number]
[2019-02-02] MEDS ORDERED: Cefdinir 300 MG CAP PO SCH (21:00)
[2019-02-02] MEDS: ALPRAZolam 0.25 MG TAB PO PRN (22:08)
--- NOTE | 2019-02-03 08:36 | PDOC.FM ---
- Subjective Subjective: pt resting comfortably in bed, reports dysuria is improving. good PO intake. - Objective Vital Signs & Weight: Vital Signs (12 hours) Temp Pulse Resp BP Pulse Ox 02/03/19 07:46 97.8 F 63 18 170/84 H 94 L 02/03/19 03:14 97.8 F 64 20 158/77 H 96 Weight Weight 83.915 kg I&O: 02/02/19 02/03/19 02/04/19 06:59 06:59 06:59 Intake Total 1120 1100 Balance 1120 1100 Result Diagrams: 02/01/19 05:50 01/31/19 16:15 Phys Exam - Physical Examination Constitutional: NAD HEENT: moist MMs Neck: full ROM Gastrointestinal: soft, non-tender, no distention Musculoskeletal: pulses present Neurological: moves all 4 limbs Psychiatric: normal affect Skin: no rash Dx/Plan (1) UTI (urinary tract infection) Status: Acute (2) Diabetes mellitus Code(s): E11.9 - TYPE 2 DIABETES MELLITUS WITHOUT COMPLICATIONS Status: Acute (3) 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 VSS - Tx for infected urolithiasis in November, has been following with Dr De Leon - Urine culture 01/28: Proteus sensitive to Ceftriaxone c/w UCx in hosp. - Ceftriaxone for a total of 5 days - Urology, Dr. De Leon consulted, appreciate recs Chronic normocytic anemia - Hgb 11.3 Metastatic colon cancer - s/p colon resection with colostomy, liver resection - Dr. Harris is oncologist DMII - ACHS accuchecks, SSI, hypoglycemic protocol - Continue home metformin Code Status: FULL DVT ppx: SCDs PCP: Dr Farfan dispo: monitor on medical, DC after five doses of rocephin
[2019-02-03] MEDS ORDERED: Cetirizine HCl 10 MG TAB PO SCH (09:00)
[2019-02-03] MEDS: Fluticasone Propionate Nasal Spray 16 gm Bottle NASAL SCH (09:23)
[2019-02-03] MEDS: metFORMIN 500 MG TAB PO SCH ×2 (09:23→20:08)
[2019-02-03] MEDS: Artificial Tear Sol 15 ML BOT EA EYE SCH ×2 (09:25→20:08)
[2019-02-03] MEDS: Amlodipine 5 MG TAB PO SCH (09:56)
[2019-02-03] MEDS: Loratadine 10 MG TAB PO SCH (09:56)
[2019-02-03] MEDS: Losartan 25 MG TAB PO SCH (09:56)
--- NOTE | 2019-02-03 12:46 | PRG ---
DATE OF SERVICE: 02/03/2019 Ms. Silver continues to look and feel well. Her dysuria has abated. She is growing a Proteus of her urine culture, sensitive to Rocephin. We will give her one more intravenous dose of Rocephin tomorrow, which will be her 5th. After which, she will be able to be discharged. Job ID: [id number]
--- NOTE | 2019-02-03 17:34 | PRG ---
DATE OF SERVICE: 02/03/2019 Reviewing this patient's vital signs, she has been afebrile with stable vital signs. She is still getting Rocephin. I talked with Dr. Marck Farfan, her primary care doctor, informing him we are going to treat her for 5 days with IV Rocephin and then I will see her back in a couple of weeks in my office, do urine culture and urinalysis. The patient will be able to go home tomorrow. I have a followup visit set up for her on February 15, at 10:40 in the morning, and I will see her then. Job ID: [id number]
[2019-02-03] MEDS: cefTRIAXone\\ROCEPHIN 1 GM in Sodium Chloride 0.9% 100 ML IVPB SCH (18:42)
[2019-02-03] MEDS: ALPRAZolam 0.25 MG TAB PO PRN (20:56)
--- NOTE | 2019-02-04 07:19 | PDOC.FM ---
- Subjective Subjective: pt ambulating and urinating successfully - Objective Vital Signs & Weight: Vital Signs (12 hours) Temp Pulse Resp BP Pulse Ox 02/04/19 05:14 97.8 F 62 20 175/89 H 96 02/04/19 00:46 97.7 F 61 20 152/60 H 97 02/03/19 20:00 96 02/03/19 19:46 98.2 F 66 20 155/86 H 96 Weight Weight 83.915 kg I&O: 02/03/19 02/04/19 02/05/19 06:59 06:59 06:59 Intake Total 1100 240 Balance 1100 240 Result Diagrams: 02/01/19 05:50 01/31/19 16:15 Phys Exam - Physical Examination Constitutional: NAD Neurological: moves all 4 limbs Psychiatric: normal affect Dx/Plan (1) UTI (urinary tract infection) Status: Acute (2) Diabetes mellitus Code(s): E11.9 - TYPE 2 DIABETES MELLITUS WITHOUT COMPLICATIONS Status: Acute (3) 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 VSS - Tx for infected urolithiasis in November, has been following with Dr De Leon - Urine culture 01/28: Proteus sensitive to Ceftriaxone c/w UCx in hosp. - Ceftriaxone for a total of 5 days - Urology, Dr. De Leon consulted, appreciate recs Chronic normocytic anemia - Hgb 11.3 Metastatic colon cancer - s/p colon resection with colostomy, liver resection - Dr. Harris is oncologist DMII - ACHS accuchecks, SSI, hypoglycemic protocol - Continue home metformin Code Status: FULL DVT ppx: SCDs PCP: Dr Farfan dispo: monitor on medical, DC after five doses of rocephin
[2019-02-04] MEDS: metFORMIN 500 MG TAB PO SCH (09:36)
[2019-02-04] MEDS: Losartan 25 MG TAB PO SCH (09:36)
[2019-02-04] MEDS: Amlodipine 5 MG TAB PO SCH (09:37)
[2019-02-04] MEDS: Loratadine 10 MG TAB PO SCH (09:37)
[2019-02-04] MEDS: Fluticasone Propionate Nasal Spray 16 gm Bottle NASAL SCH (09:40)
[2019-02-04] MEDS: Artificial Tear Sol 15 ML BOT EA EYE SCH (09:40)
--- NOTE | 2019-02-04 11:46 | PRG ---
DATE OF SERVICE: 02/04/2019 Ms. Silver is looking and feeling fine. She will receive her final dose of IV antibiotics this afternoon and thereafter be discharged. Job ID: [id number]
[2019-02-04 11:53] VITALS: TEMP 97.9
[2019-02-04 16:37] VITALS: BP 148/80
[2019-02-04] MEDS: cefTRIAXone\\ROCEPHIN 1 GM in Sodium Chloride 0.9% 100 ML IVPB SCH (17:11)
== END 2019-02-04 18:56 | disposition home or self-care (01) | DRG 690 ==
LOC: ERS 15:57 → T4-B 18:10 → OBSVTOIN 02-01 15:22
PROVIDERS: ADMIT Student in an Organized Health Care Education/Training Program; ATTEND Student in an Organized Health Care Education/Training Program
DX: N39.0 Urinary tract infection, site not specified (principal); C78.7 Secondary malignant neoplasm of liver and intrahepatic bile duct; B96.4 Proteus (mirabilis) (morganii) as the cause of diseases classified elsewhere; E11.65 Type 2 diabetes mellitus with hyperglycemia; D64.9 Anemia, unspecified; I10 Essential (primary) hypertension; Z88.2 Allergy status to sulfonamides; Z79.84 Long term (current) use of oral hypoglycemic drugs; Z79.899 Other long term (current) drug therapy; Z85.038 Personal history of other malignant neoplasm of large intestine; Z90.49 Acquired absence of other specified parts of digestive tract; Z90.710 Acquired absence of both cervix and uterus; Z87.891 Personal history of nicotine dependence; Z93.3 Colostomy status
CPT/HCPCS: 36415; 36416; 74176; 76770; 80053; 81003; 81015; 84145; 85025; 87040; 87077; 87086; 87186; 96365; J0696; J3490

== ENCOUNTER 2019-03-22 13:06 | Outpatient (CLI) | payer MEDICARE ==
--- NOTE | 2019-03-22 15:48 | PET ---
PET SCAN WITH CT ATTENUATION CORRECTION: HISTORY: Sigmoid colon cancer with metastasis. COMPARISON: 01/11/19. TECHNIQUE: PET scanning with CT attenuation correction is performed from the base of the brain to the proximal t highs following the intravenous administration of 11.7 mCi F18-FDG. FINDINGS: HEAD/NECK: Uptake at the level of the vocal cords likely due to vocal cord motion. CHEST: No abnormal FDG localization in the left or right laura, or within the mediastinum. However, CT used f or attenuation correction demonstrates enlarging nodule in the right upper lobe currently measuring 1 .2 x 1.3 cm (previously measuring 0.6 cm). Maximum SUV is 1.4. There is a stable nodule in the left u pper lobe measuring 1.0 cm with a maximum SUV of 1.0. There is a stable nodule in the middle lobe wit h a maximum SUV of 1.0. This nodule is also approximately 1.0 cm in size. ABDOMEN/PELVIS: There is worsening/increased FDG avidity involving the liver at the resection margin. SUV in this reg ion measures between 4.9 and 7.4. Additionally, there is a new focus of FDG avidity which appears to be in the left hepatic lobe with a maximum SUV of 4.9. No additional abnormal FDG localization in the abdomen or pelvis. Ventral dehiscence of the abdominal wall without chuck herniation. Left lower quadrant ostomy. CT used for attenuation correction demons trates a right renal nonhypermetabolic focus likely representing a cyst. Nonobstructing calcification s in the left renal pelvis. OSSEOUS STRUCTURES: Limited evaluation due to beam attenuation artifact from bilateral hip prostheses. No abnormal FDG lo calization in the osseous structures. Anterolisthesis of L4 upon L5 is redemonstrated. IMPRESSION: 1. Increased and worsening FDG avidity in the liver suggesting progression of metastasis. 2. Lung parenchymal nodules as described above. These nodules are not hypermetabolic. However, there has been interval increase in size of a nodule in the right upper lobe, worrisome for malignancy/met astases until proven otherwise. The reported SUV value may in part be due to the small size of the no dules. POS: RYAN
== END 2019-03-22 13:07 | disposition home or self-care (01) ==
LOC: PET 13:06
PROVIDERS: ATTEND Internal Medicine Hematology & Oncology
DX: C18.9 Malignant neoplasm of colon, unspecified (principal); R91.8 Other nonspecific abnormal finding of lung field
CPT/HCPCS: 78815; 80053; 82378; A9552; 36415

== ENCOUNTER 2019-06-14 14:18 | Outpatient (CLI) | payer MEDICARE | END 2019-06-14 14:19 | disposition home or self-care (01) | LOC: CTENTCT 14:18 | PROVIDERS: ATTEND Otolaryngology Plastic Surgery within the Head & Neck | DX: J39.2 Other diseases of pharynx (principal) | CPT/HCPCS: 70486 ==

== ENCOUNTER → 2019-06-28 | Day surgery (SDC) | payer MEDICARE ==
[2019-06-27 14:19] VITALS: BMI 33.0
[~2019-06-28] MED LIST changes: +Bupivacaine/Epinephrine 0.25% 30 ML VIAL ONE; +Lidocaine 2% PF 5 ML VIAL ONE; +Propofol 500 MG/50 ML VIAL ONE; +Sodium Chloride 0.9% 100 ML ONE; -Sodium Chloride 0.9% 15 ML NEB ONE; +cefTRIAXone\\ROCEPHIN 1 GM VIAL ONE
--- NOTE | 2019-06-28 13:57 | RAD ---
Portable frontal chest radiograph: 06/28/2019 COMPARISON: 12/22/2017 HISTORY: Evaluate chest following Mediport placement FINDINGS: New right-sided Mediport present, distal tip overlying the region of the SVC. Stable heart and mediastinal contours. Prominent bilateral shoulder degenerative change noted. No pneumothorax, focal consolidation, or alveolar edema. IMPRESSION: Right-sided Port-A-Cath. No pneumothorax.
--- NOTE | 2019-06-30 12:10 | PDOC.OP ---
Operative Note - Operative Note Operative Note: PROCEDURE: Right internal jugular MediPort placement with ultrasound and fluoroscopic guidance DATE OF PROCEDURE: 06/28/2019 SURGEON: Gee Loco M.D. PREOPERATIVE DIAGNOSIS: Metastatic colon cancer POSTOPERATIVE DIAGNOSIS: Metastatic colon cancer HISTORY: Patient has been diagnosed with metastatic colon cancer. The previous Mediport was starting to erode through her skin. Chemotherapy is still required and a Mediport will need to be placed for this. OPERATIVE PROCEDURE IN DETAIL: After informed consent was obtained and appropriate preoperative antibiotics administered, the patient was taken to the operating room and placed in supine position and monitored anesthesia care was administered. The patient was then placed in Trendelenburg position and the patent compressible right internal jugular vein accessed easily on the first attempt under direct ultrasound guidance with excellent flow of dark venous non- pulsatile blood. A wire threaded easily and was confirmed to be in the compressible vein by ultrasound and with the tip in the superior vena cava by fluoroscopy. Additional local anesthesia was infused to the skin and subcutaneous tissues of the right neck and chest. A skin incision was made on the right chest and a subcutaneous pocket developed inferiorly. A Mediport was obtained and confirmed to fit in the subcutaneous pocket. This was secured inferiorly to the pectoralis fascia with a Prolene suture, which was clamped, but not tied. Mediport tubing was then tunneled from the chest to the right IJ access site subcutaneously. The dilator and sheath were then placed over the wire and the dilator and wire removed leaving the sheath in place. The clamped MediPort tubing was tunneled through the sheath, which was then split and removed leaving the MediPort tubing in place. The tubing was adjusted until the tip was confirmed by fluoroscopy to be in the superior vena cava just above the atrium. The tubing was clamped at the skin level and cut and the tubing secured to the port, which was then placed in the subcutaneous pocket. The previously placed suture was secured and two additional sutures were placed to fix the port in place within the pocket. The port was aspirated with the Arcos needle and had excellent flow of dark venous non-pulsatile blood and easily flushed without resistance. The subcutaneous tissues were closed with a running Monocryl suture, following which the skin was closed with a running subcuticular Monocryl suture. Dermabond dressings were placed. The course of the catheter was confirmed by fluoroscopy to be smooth with the tip appropriately located in the superior vena cava. The patient was taken back to recovery in good condition. Estimated blood loss was minimal. There were no complications. There were no specimens
== END ==
LOC: SDC 10:13
PROVIDERS: ATTEND Surgery
PROC: 05HM33Z Insertion of Infusion Device into Right Internal Jugular Vein, Percutaneous Approach (ICD-10-PCS; principal; 2019-06-28)
PROC: B5131ZA Fluoroscopy of Right Jugular Veins using Low Osmolar Contrast, Guidance (ICD-10-PCS; 2019-06-28)
DX: C18.9 Malignant neoplasm of colon, unspecified (principal); K43.5 Parastomal hernia without obstruction or gangrene; T82.7XXA Infection and inflammatory reaction due to other cardiac and vascular devices, implants and grafts, initial encounter; I10 Essential (primary) hypertension; E11.9 Type 2 diabetes mellitus without complications; E78.5 Hyperlipidemia, unspecified; Z79.84 Long term (current) use of oral hypoglycemic drugs; Z79.899 Other long term (current) drug therapy; Z87.891 Personal history of nicotine dependence; Z88.2 Allergy status to sulfonamides
CPT/HCPCS: 71045; J0690; J0696; J1642; J2001; J2704; J3490

== ENCOUNTER 2019-09-27 12:20 | Outpatient (CLI) | payer MEDICARE ==
--- NOTE | 2019-09-27 14:09 | PET ---
EXAM: PET CT skull to mid thigh COMPARISON: 03/22/2019 HISTORY: Malignant neoplasm of the sigmoid colon TECHNIQUE: A PET/CT was performed from the skull to the mid thigh after administration of 11.1 millic uries of F-18 FDG. Evaluation was performed on a [employer] workstation. FINDINGS: NECK: No areas of hypermetabolic activity CHEST: Multiple scattered pulmonary nodules are subcentimeter in size. No areas of hypermetabolic act ivity ABDOMEN/PELVIS: The hypermetabolic activity in the right lobe of the liver is still present but less prominent than the prior examination. SKELETON: No areas of hypermetabolic activity CT images used for attenuation correction show no significant abnormality. The patient has bilateral hip arthroplasties. There is a Mediport with its tip in the superior vena cava. An ostomy is seen in the left lower quadrant of the abdomen. There is a stable right renal cyst. IMPRESSION: 1. The hypermetabolic activity in the right lobe of liver is less prominent than on the prior examina tion 2. Scattered subcentimeter pulmonary nodules are grossly stable in size
== END 2019-09-27 12:21 | disposition home or self-care (01) ==
LOC: PET 12:20
PROVIDERS: ATTEND Internal Medicine Hematology & Oncology
DX: C18.9 Malignant neoplasm of colon, unspecified (principal); C78.7 Secondary malignant neoplasm of liver and intrahepatic bile duct; R91.8 Other nonspecific abnormal finding of lung field
CPT/HCPCS: 78815; A9552

== ENCOUNTER 2020-04-05 08:58 | Outpatient (CLI) | payer MEDICARE ==
--- NOTE | 2020-04-05 11:57 | PET ---
Nuclear medicine FDG PET/CT: (Positron emission tomography and computed tomography) DATE: 04/05/2020 HISTORY: 79-year-old female with malignant neoplasm of sigmoid colon with liver and lung metastasis. Subsequen t PET scan to evaluate for response to treatment. COMPARISON: 09/27/2019 TECHNIQUE: IV injection of F-18 fluorodeoxyglucose (FDG) dose: 11.4 mCi. PET scan and attenuation correction CT performed from skull base to proximal thighs. FINDINGS: SUV (standard uptake values) numbers given are maximum SUVs. QCLR used. Previously 1.1 x 0.9 cm noncalcified pulmonary nodule at apical segment right upper lobe in right par atracheal location, is currently 1.1 x 1.4 cm, and has SUV of 5.5 (previous SUV 1.3). There has also been mild and moderate interval growth of all of the other pulmonary nodules in the bi lateral upper lobes, lower lobes, and right middle lobe. However, they are still too small to register SUV greater than 2.5. No pleural effusion. Status post resection of right lobe of liver. Enlarged left and caudate lobes of liver. Abutting the undersurface of the elevated right hemidiaphragm, there is a focus of increased uptake i n the hepatic flexure of the colon which has current SUV of 5.6, and previous SUV of 3.9. Adjacent Cystic lesion at the superior lateral edge of the liver has no hypermetabolic activity, and is unchan ged. Scattered other areas of increased uptake in the large intestine.: Patchy regions of increased uptake in the upper right side of the left lobe of the liver, current SUV 6.2. Previous SUV 5.7. More inferiorly in the right side of left lobe of liver, lesion with current SUV 7.9. Previous SUV 3. 4. Slightly to the left of that, lesion with current SUV 6.2. Previous SUV 5.4. No hypermetabolic lymphadenopathy in the neck, abdominal cavity or pelvic cavity. New finding of diffusely markedly increased uptake throughout all osseous structures, consistent with G-CSF administration. No ascites. Left lower quadrant colostomy. IMPRESSION: 1) all of the pulmonary nodules have increased in size, consistent with worsening of diffuse bilatera l pulmonary metastases. However, only one of them, at the apical segment of the right upper lobe, is large enough to register increased SUV: 5.5. 2) interval worsening of hepatic metastases. 3) signs of treatment with bone marrow stimulating agent.
== END 2020-04-05 08:59 | disposition home or self-care (01) ==
LOC: PET 08:58
PROVIDERS: ATTEND Internal Medicine Hematology & Oncology
DX: C18.7 Malignant neoplasm of sigmoid colon (principal); C78.00 Secondary malignant neoplasm of unspecified lung; C78.7 Secondary malignant neoplasm of liver and intrahepatic bile duct; R91.8 Other nonspecific abnormal finding of lung field
CPT/HCPCS: 78815; A9552

== ENCOUNTER 2020-06-26 10:28 | Outpatient (CLI) | payer MEDICARE ==
--- NOTE | 2020-06-26 15:29 | PET ---
PET CT: HISTORY: A 9-year-old female with metastatic colon cancer with lung and liver mets. Exam requested to evaluat e for response to treatment. The patient is undergoing chemotherapy. TECHNIQUE: PET scanning with CT attenuation correction was performed from the base of the brain to the proximal thighs following the intravenous administration of 13 mCi [id number] in the right wrist. COMPARISON: 04/05/2020. FINDINGS: The 1.5 cm pulmonary nodule in the apical segment of the right upper lobe in the right paratracheal l ocation is again seen and demonstrates hypermetabolic activity with an SUV of 6 (previously 5.5). Th e remainder of the pulmonary nodules are stable and demonstrate no hypermetabolic activity. The patient is post right hepatic lobectomy with enlargement of the left and caudate lobes of the anthony er. The hypermetabolic foci in the liver noted on the previous exam are again seen with an SUV of 7 in the superior aspect to the right of midline close to the dome with an SUV of 7 (previously 6.2). Inferior to this is a hypermetabolic focus with an SUV of 7 (previously 7.9). To the left of this is a hypermetabolic focus with an SUV of 4.8 (previously 6.2). No kiki hypermetabolism is seen in the neck, chest, abdomen, or pelvis. Diffusely increased uptake in the skeleton is consistent with history of bone marrow stimulating meds (Neulasta). No hypermetab olic adrenal, splenic, or pancreatic lesions are seen. There is physiologic activity in the GI and tracts and visualized portions of the brain. The CT scan used for attenuation correction demonstrates no evidence of pleural effusions or ascites. Left lower quadrant colostomy is again seen. IMPRESSION: Stable exam. POS: CHRISTIANEA
== END 2020-06-26 10:29 | disposition home or self-care (01) ==
LOC: PET 10:28
PROVIDERS: ATTEND Internal Medicine Hematology & Oncology
DX: C18.7 Malignant neoplasm of sigmoid colon (principal); C78.7 Secondary malignant neoplasm of liver and intrahepatic bile duct; C78.00 Secondary malignant neoplasm of unspecified lung
CPT/HCPCS: 78815; A9552

== ENCOUNTER 2020-06-28 14:45 | Outpatient (CLI) | payer MEDICARE ==
--- NOTE | 2020-06-28 15:51 | ULT ---
ULTRASOUND DOPPLER DUPLEX VENOUS RIGHT LOWER EXTREMITY: DATE: 06/28/2020 HISTORY: 79-year-old female with left lower extremity edema and pain with erythema. Dr. Owen left left text message with Dr. Marissa Harris, both at 3:41 PM 06/28/2020. Dr. Harris text at back reply at. At same time instructing patient to go to her office for anticoagu lation treatment. Help Desk Administrator Immanuel Reis was instructed to notify the patient of the DVT, and instruct her to go to Dr. Harris's office. TECHNIQUE: Grayscale, color-flow, and spectral analysis, of the right common femoral, profunda femoral, greater saphenous, femoral, popliteal, and posterior tibial, veins. FINDINGS: There is partial, incomplete compressibility, with decreased flow, at the common femoral vein, with c lot extending into the greater saphenous vein. The entire greater saphenous vein is occluded from groin to knee. There is partial, incomplete compressibility, with decreased flow, at the proximal aspect of the femo ral vein. There is a 6 x 3 x 0.5 cm complex subcutaneous superficial fluid collection at the medial aspect of t he leg distal to the knee. It has multiple septations and has multifocal small internal echoes. There is soft tissue edema of the calf. IMPRESSION: 1) positive for partial deep vein thrombosis of left common femoral vein and proximal portion of left femoral vein. 2) occlusive thrombosis of entire left greater saphenous vein. 3) complex superficial soft tissue fluid collection at medial aspect of left calf: Abscess versus hem atoma.
== END 2020-06-28 14:46 | disposition home or self-care (01) ==
LOC: SCSULT 14:45
PROVIDERS: ATTEND Internal Medicine Hematology & Oncology
DX: R60.0 Localized edema (principal); M79.605 Pain in left leg; I82.412 Acute embolism and thrombosis of left femoral vein; I82.4Y2 Acute embolism and thrombosis of unspecified deep veins of left proximal lower extremity; I82.812 Embolism and thrombosis of superficial veins of left lower extremity

== ENCOUNTER 2020-10-19 07:37 | Outpatient (CLI) | payer MEDICARE ==
--- NOTE | 2020-10-19 09:48 | PET ---
Radionucleotide PET scan with CT attenuation correction HISTORY: Malignant neoplasm of sigmoid colon with metastatic disease. Restaging. COMPARISON: 06/26/2020. FINDINGS: Multiple lung nodules again demonstrated. Enlargement compared to the prior exam. The large st and most conspicuous enlargement is the lesion at the medial aspect of the right lung apex, now 1.9 cm greatest diameter where it was previously 1.5 cm. There is also hypermetabolic intensity associated with the lung nodules: Location, max SUV (previous max SUV) Right apex medial, 6.4 (6.0) Right apex posterior, 9.1 (1.8) Right lower lobe superior segment lateral, 2.6 (negative) Right middle lobe lateral, 4.5 (1.5) Right lower lobe posterolateral, 5.3 (2.1) Left upper lobe posterior, 5.4 (1.2) Left lower lobe posterior, 3.3 (negative) A nonenlarged right hilar lymph node now shows increased activity max SUV 5.2 (previously negative) Heterogeneous low-density lesions of the liver are again demonstrated. Borders not well circumscribed on the noncontrast study for accurate size measurements. There has been increased radiotracer uptake associated with the masses: Right anterior segment upper, 12.7 (7.0) Right anterior segment lower, 11.7 (6.2) Left medial segment lower, 11.5 (4.8) Physiologic uptake of radiotracer within the enteric system and along each urinary tract. IMPRESSION : Significant overall worsening of metastatic disease involving the lungs, right hilum, and liver.
== END 2020-10-19 07:38 | disposition home or self-care (01) ==
LOC: PET 07:37
PROVIDERS: ATTEND Internal Medicine Hematology & Oncology
DX: C18.7 Malignant neoplasm of sigmoid colon (principal); C78.7 Secondary malignant neoplasm of liver and intrahepatic bile duct; C78.01 Secondary malignant neoplasm of right lung
CPT/HCPCS: 78815; A9552

== ENCOUNTER 2021-01-23 08:28 | Day surgery (SDC) | payer MEDICARE ==
[2021-01-23] MEDS ORDERED: Sodium Chloride 0.9% 20 ML ONE (08:53)
[2021-01-23] MEDS ORDERED: Acetaminophen 500 MG TAB PO SCH (09:00)
[2021-01-23] MEDS ORDERED: diphenhydrAMINE 25 MG CAP PO SCH (09:00)
[2021-01-23] MEDS ORDERED: Furosemide 20 MG/2 ML VIAL SLOW IVP SCH (09:00)
[2021-01-23 16:57] VITALS: BP 124/60; TEMP 98
== END 2021-01-23 16:32 | disposition home or self-care (01) ==
LOC: ONC/OP 08:28
PROVIDERS: ATTEND Internal Medicine Hematology & Oncology
PROC: 30233N1 Transfusion of Nonautologous Red Blood Cells into Peripheral Vein, Percutaneous Approach (ICD-10-PCS; principal; 2021-01-23)
DX: D64.9 Anemia, unspecified (principal); D69.6 Thrombocytopenia, unspecified; Z88.2 Allergy status to sulfonamides
CPT/HCPCS: 36430; 86850; 86900; 86901; 96374; J1642; J1940; P9016; Q0163

== ENCOUNTER 2021-03-19 09:43 | Outpatient (CLI) | payer MEDICARE | END 2021-03-19 09:44 | disposition home or self-care (01) | LOC: PET 09:43 | PROVIDERS: ATTEND Internal Medicine Hematology & Oncology | DX: C18.7 Malignant neoplasm of sigmoid colon (principal); C78.7 Secondary malignant neoplasm of liver and intrahepatic bile duct | CPT/HCPCS: 78815; A9552 ==

== ENCOUNTER 2021-06-29 20:27 | Inpatient (IN) | payer MEDICARE ==
[2021-06-29 21:52] LABS: #Eosinphils 0.1 thou/uL (0.0-0.7); #Monocytes 0.3 thou/uL (0.11-0.59); #Neutrophils 3.8 thou/uL (1.40-6.50); %Basophils 0.4 % (0.0-1.0); %Eosinophils 1.3 % (0.0-10.0); %Lymphocytes 19.7 % (21.0-51.0); %Monocytes 5.8 % (0.0-10.0); %Neutrophils 72.8 % (42.0-75.0); Hemoglobin 7.1 g/dL (12.0-16.0); Mean Corpuscular HGB CONC 31.7 g/dL (32.0-36.0); Mean Corpuscular Hemoglobin 30.7 pg (27.0-31.0); Mean Platelet Volume 8.6 fL (7.4-10.4); Platelet Count 122 thou/uL (130-400); RBC Distribution Width 15.6 % (11.5-14.5); White Blood Cell (WBC) Count 5.3 thou/uL (4.8-10.8)
[2021-06-29 21:55] LABS: INR-International Normal Ratio 3.1
[2021-06-29 21:56] LABS: PTT 61.3 sec (22.9-36.1)
[2021-06-29 22:10] LABS: Albumin 3.5 g/dL (3.4-4.8)
[2021-06-29 22:12] LABS: Calcium 8.9 mg/dL (7.8-10.44); Chloride 104 mmol/L (98-107); Potassium 3.5 mmol/L (3.5-5.1); Sodium 137 mmol/L (136-145)
[2021-06-29 22:13] LABS: Globulin 3.4 g/dL (2.4-3.5); Glucose 168 mg/dL (83-110); Protein, Total 6.9 g/dL (5.8-8.1)
[2021-06-29] MEDS ORDERED: Pantoprazole 40 MG VIAL ONE (22:14)
[2021-06-29 22:15] LABS: Anion Gap 14 mmol/L (10-20); Bilirubin, Total 0.6 mg/dL (0.2-1.2); Carbon Dioxide 23 mmol/L (23-31)
[2021-06-29 22:16] LABS: Alkaline Phosphatase 141 U/L (40-110)
[2021-06-29 22:17] LABS: BUN (Urea Nitrogen) 8 mg/dL (9.8-20.1); Calc. Creatinine Clearance 0 mL/min (70-130)
[2021-06-29 22:18] LABS: AST (SGOT) 26 U/L (5-34)
[2021-06-29 22:19] LABS: ALT (SGPT) Less than 7 U/L (8-55)
[2021-06-29] MEDS ORDERED: Acetaminophen 500 MG TAB ONE (23:41)
[2021-06-30] MEDS ORDERED: Dextrose 50% Abboject 50 ML SYRINGE SLOW IVP PRN (00:38)
[2021-06-30] MEDS ORDERED: HumaLOG 300 UNITS/3 ML VIAL SC PRN ×2 (00:38)
[2021-06-30] MEDS ORDERED: Dextrose 5% in Water 1,000 ML IV PRN (00:38)
[2021-06-30] MEDS ORDERED: Ondansetron ODT 4 MG TAB PO PRN (00:38)
[2021-06-30] MEDS ORDERED: Calcium Carbonate 500 MG ChewTAB PO PRN (00:38)
[2021-06-30] MEDS ORDERED: Lactated Ringer's 1,000 ML IV SCH (01:15)
[2021-06-30] MEDS ORDERED: Sodium Chloride 0.9% (PF) 10 ML VIAL FS PRN (01:15)
[2021-06-30 02:52] VITALS: BMI 28.1
[2021-06-30 04:30] LABS: SARS-CoV-2 NAA Rapid Test Not Detected (NotDetected)
[2021-06-30 05:57] LABS: #Eosinphils 0.1 thou/uL (0.0-0.7); #Lymphocytes 0.9 thou/uL (1.20-3.40); #Monocytes 0.2 thou/uL (0.11-0.59); #Neutrophils 2.5 thou/uL (1.40-6.50); %Basophils 0.4 % (0.0-1.0); %Eosinophils 1.8 % (0.0-10.0); %Lymphocytes 23.4 % (21.0-51.0); %Monocytes 6.4 % (0.0-10.0); Hemoglobin 6.9 g/dL (12.0-16.0); Mean Corpuscular HGB CONC 33.1 g/dL (32.0-36.0); Mean Corpuscular Hemoglobin 31.8 pg (27.0-31.0); Mean Corpuscular Volume 96.1 fL (78.0-98.0); Mean Platelet Volume 9.5 fL (7.4-10.4); Platelet Count 87 thou/uL (130-400); RBC Distribution Width 15.2 % (11.5-14.5); Red Blood Cell (RBC) Count 2.18 mill/uL (4.20-5.40); White Blood Cell (WBC) Count 3.7 thou/uL (4.8-10.8)
[2021-06-30 06:01] LABS: INR-International Normal Ratio 2.3; Prothrombin Time 25.3 sec (12.0-14.7)
[2021-06-30 06:15] LABS: Platelet Count 87 thou/uL (130-400)
[2021-06-30 06:28] LABS: FSP-Qualitative Normal (Normal)
[2021-06-30 06:30] LABS: INR-International Normal Ratio 2.3; Prothrombin Time 25.4 sec (12.0-14.7)
[2021-06-30 06:31] LABS: Fibrinogen 362 mg/dL (253-463); PTT 44.4 sec (22.9-36.1)
[2021-06-30 06:34] LABS: D-Dimer Test 1.88 *mcg/mL (0.27-0.43)
[2021-06-30] MEDS: Pantoprazole 40 MG VIAL IVP SCH ×2 (09:37→20:42)
[2021-06-30 11:21] LABS: Mean Corpuscular HGB CONC 32.3 g/dL (32.0-36.0); Mean Corpuscular Hemoglobin 30.5 pg (27.0-31.0); Mean Corpuscular Volume 94.4 fL (78.0-98.0)
[2021-06-30 11:41] LABS: Anisocytosis SLIGHT = 6-15 cells (100X) (0-5/hpf); Band 8 % (5-11); Eosinophils 3 % (0-10); Large Platelets SLIGHT; Lymphocytes 19 % (21-51); MDiff Complete? YES; Mean Platelet Volume 9.8 fL (7.4-10.4); Monocytes 13 % (0-10); Neutrophil 56 % (42-75); Platelet Count 93 thou/uL (130-400); Platelet Morphology Comment Appears Decreased; Polychromasia SLIGHT = 2-3 cells (100X) (0-2/hpf); RBC Distribution Width 14.9 % (11.5-14.5); Reactive Lymphocytes 1 % (0-10); White Blood Cell (WBC) Count 3.5 thou/uL (4.8-10.8)
[2021-06-30 15:43] LABS: Hemoglobin 8.9 g/dL (12.0-16.0)
[2021-06-30] MEDS ORDERED: GoLYTELY 4,000 ml Bottle PO SCH (18:00)
[2021-06-30] MEDS ORDERED: Phytonadione 5 MG TAB PO SCH (18:30)
[2021-06-30] MEDS: Acetaminophen 325 MG TAB PO PRN (23:47)
[2021-07-01 04:27] LABS: #Eosinphils 0.1 thou/uL (0.0-0.7); #Monocytes 0.4 thou/uL (0.11-0.59); #Neutrophils 3.5 thou/uL (1.40-6.50); %Basophils 0.7 % (0.0-1.0); %Eosinophils 1.5 % (0.0-10.0); %Monocytes 7.2 % (0.0-10.0); %Neutrophils 70.6 % (42.0-75.0); Hemoglobin 8.6 g/dL (12.0-16.0); Mean Corpuscular Hemoglobin 31.2 pg (27.0-31.0); Mean Corpuscular Volume 94.6 fL (78.0-98.0); Mean Platelet Volume 8.9 fL (7.4-10.4); Platelet Count 100 thou/uL (130-400); RBC Distribution Width 14.9 % (11.5-14.5); Red Blood Cell (RBC) Count 2.75 mill/uL (4.20-5.40); White Blood Cell (WBC) Count 4.9 thou/uL (4.8-10.8)
[2021-07-01 04:34] LABS: INR-International Normal Ratio 1.3; Prothrombin Time 16.5 sec (12.0-14.7)
[2021-07-01 04:44] LABS: ALT (SGPT) 8 U/L (8-55); AST (SGOT) 31 U/L (5-34); Alkaline Phosphatase 134 U/L (40-110); Anion Gap 12 mmol/L (10-20); BUN (Urea Nitrogen) 7 mg/dL (9.8-20.1); Bilirubin, Total 1.6 mg/dL (0.2-1.2); Calc. Creatinine Clearance 80 mL/min (70-130); Calcium 8.6 mg/dL (7.8-10.44); Carbon Dioxide 28 mmol/L (23-31); Chloride 105 mmol/L (98-107); Globulin 2.9 g/dL (2.4-3.5); Glucose 136 mg/dL (83-110); Protein, Total 5.9 g/dL (5.8-8.1); Sodium 141 mmol/L (136-145)
[2021-07-01] MEDS: Pantoprazole 40 MG VIAL IVP SCH ×2 (08:14→20:20)
[2021-07-01] MEDS ORDERED: PROPOFOL 200 MG/20 ML VIAL ONE (11:05)
[2021-07-01] MEDS ORDERED: Lidocaine 1% PF 5 ML VIAL ONE (11:05)
[2021-07-01] MEDS: Acetaminophen 325 MG TAB PO PRN ×2 (13:05→22:19)
[2021-07-01] MEDS ORDERED: ALPRAZolam 0.25 MG TAB PO PRN (17:16)
[2021-07-01] MEDS: metFORMIN 500 MG TAB PO SCH (20:20)
[2021-07-02 04:13] VITALS: TEMP 98.1
[2021-07-02 04:23] LABS: #Lymphocytes 0.9 thou/uL (1.20-3.40); #Monocytes 0.5 thou/uL (0.11-0.59); %Basophils 0.2 % (0.0-1.0); %Eosinophils 0.5 % (0.0-10.0); %Lymphocytes 9.2 % (21.0-51.0); %Monocytes 5.5 % (0.0-10.0); %Neutrophils 84.7 % (42.0-75.0); Hemoglobin 8.3 g/dL (12.0-16.0); Mean Corpuscular HGB CONC 32.8 g/dL (32.0-36.0); Mean Corpuscular Hemoglobin 31.2 pg (27.0-31.0); Platelet Count 111 thou/uL (130-400); Red Blood Cell (RBC) Count 2.66 mill/uL (4.20-5.40); White Blood Cell (WBC) Count 9.4 thou/uL (4.8-10.8)
[2021-07-02 04:42] LABS: ALT (SGPT) Less than 7 U/L (8-55); AST (SGOT) 28 U/L (5-34); Albumin 2.9 g/dL (3.4-4.8); Alkaline Phosphatase 119 U/L (40-110); Anion Gap 13 mmol/L (10-20); BUN (Urea Nitrogen) 9 mg/dL (9.8-20.1); Bilirubin, Total 1.3 mg/dL (0.2-1.2); Calc. Creatinine Clearance 84 mL/min (70-130); Calcium 8.2 mg/dL (7.8-10.44); Carbon Dioxide 23 mmol/L (23-31); Chloride 104 mmol/L (98-107); Globulin 2.9 g/dL (2.4-3.5); Glucose 167 mg/dL (83-110); Potassium 3.6 mmol/L (3.5-5.1); Protein, Total 5.8 g/dL (5.8-8.1); Sodium 136 mmol/L (136-145)
[2021-07-02 07:54] VITALS: BP 132/63
[2021-07-02] MEDS ORDERED: Losartan 25 MG TAB PO SCH (09:00)
[2021-07-02] MEDS: metFORMIN 500 MG TAB PO SCH (09:03)
[2021-07-02] MEDS: Pantoprazole 40 MG VIAL IVP SCH (09:03)
[2021-07-02] MEDS: Acetaminophen 325 MG TAB PO PRN (10:05)
[2021-07-02] MEDS ORDERED: Glimepiride 2 MG TAB PO SCH (12:00)
[2021-07-03] MEDS ORDERED: FLU VACC QS2021-22(65YR UP)/PF 240 MCG/0.7 ML SYRINGE IM ONE (09:00)
== END 2021-07-02 16:57 | disposition home or self-care (01) | DRG 378 ==
LOC: ERS 20:27 → SURG B 06-30 00:04 → ONC 06-30 23:43
PROVIDERS: ADMIT Family Medicine; ATTEND Family Medicine
PROC: 30233N1 Transfusion of Nonautologous Red Blood Cells into Peripheral Vein, Percutaneous Approach (ICD-10-PCS; principal; 2021-06-29)
PROC: 0DJ08ZZ Inspection of Upper Intestinal Tract, Via Natural or Artificial Opening Endoscopic (ICD-10-PCS; 2021-07-01)
PROC: 0W3P8ZZ Control Bleeding in Gastrointestinal Tract, Via Natural or Artificial Opening Endoscopic (ICD-10-PCS; 2021-07-01)
DX: K92.2 Gastrointestinal hemorrhage, unspecified (principal); D62 Acute posthemorrhagic anemia; C18.9 Malignant neoplasm of colon, unspecified; C78.7 Secondary malignant neoplasm of liver and intrahepatic bile duct; C78.00 Secondary malignant neoplasm of unspecified lung; D61.818 Other pancytopenia; Z20.822 Contact with and (suspected) exposure to COVID-19; K63.5 Polyp of colon; Z96.643 Presence of artificial hip joint, bilateral; K52.9 Noninfective gastroenteritis and colitis, unspecified; N18.9 Chronic kidney disease, unspecified; E11.22 Type 2 diabetes mellitus with diabetic chronic kidney disease; K55.20 Angiodysplasia of colon without hemorrhage; K57.30 Diverticulosis of large intestine without perforation or abscess without bleeding; Z60.2 Problems related to living alone; K76.89 Other specified diseases of liver; Z66 Do not resuscitate; D69.6 Thrombocytopenia, unspecified; Z79.01 Long term (current) use of anticoagulants; Z86.718 Personal history of other venous thrombosis and embolism; Z93.3 Colostomy status; Z90.49 Acquired absence of other specified parts of digestive tract; Z90.710 Acquired absence of both cervix and uterus; Z79.84 Long term (current) use of oral hypoglycemic drugs; Z79.899 Other long term (current) drug therapy; Z87.891 Personal history of nicotine dependence; Z88.2 Allergy status to sulfonamides
CPT/HCPCS: 36415; 36416; 36430; 80053; 84134; 84484; 85025; 85049; 85060; 85300; 85362; 85379; 85384; 85610; 85730; 86850; 86900; 86901; 93005; 96374; C9113; J2704; J7120; P9016; Q0162; U0002